=== PATIENT | male | born 1940 | race Caucasian/White ===

== ENCOUNTER 2021-07-15 12:19 | Inpatient (IN) | payer MEDICAID, MEDICARE ==
[~2021-07-15] VITALS: Ht 182.9 cm; Wt 74.4 kg
--- NOTE | 2021-07-15 12:31 | NUR ---
TO ER BED 2. [facility] FROM [facility]IV[facility] C/O WEAKNESS SINCE THIS MORNING. PT CHANGED INTO GOWN. NOT IN RESPIRATORY DISTRESS. CONNECTED TO MONITOR. AWAITING DOCTORS ORDERS.
--- NOTE | 2021-07-15 12:45 | NUR ---
IV LINE ESTABLISHED . R FORARM 20G.
--- NOTE | 2021-07-15 12:49 | NUR ---
PT TAKEN TO CT SCAN
--- NOTE | 2021-07-15 13:06 | NUR ---
PT RETURNED FROM CT SCAN. RECONNECTED TO MONITOR.
--- NOTE | 2021-07-15 13:19 | NUR ---
LAB AT BEDSIDE
[2021-07-15 13:49] LABS: ALANINE AMINOTRANSFERASE 21 U/L (12-78); ALBUMIN 3.3 g/dL (3.4-5.0); ALKALINE PHOSPHATASE 95 U/L (46-116); ASPARTATE AMINOTRANSFERASE 9 U/L (15-37); BILIRUBIN,DIRECT 0.2 mg/dL (0.0-0.2); CALCIUM, SERUM 10.5 mg/dL (8.5-10.1); CARBON DIOXIDE 29 mmol/L (21-32); CHLORIDE 106 mmol/L (98-107); GLUCOSE 113 mg/dL (74-106); SODIUM SERUM 142 mmol/L (136-145); TOTAL PROTEIN, SERUM 6.4 g/dL (6.4-8.2); UREA NITROGEN, BLOOD 21 mg/dL (7-18)
[2021-07-15 14:06] LABS: BASOPHILS % (AUTO) 0.5 % (0.0-2.0); HEMATOCRIT 41 % (39-51); HEMOGLOBIN 13.3 g/dL (13.5-17.5); LYMPHOCYTES # (AUTO) 0.7 K/uL (0.8-4.8); LYMPHOCYTES % (AUTO) 9.9 % (20.0-44.0); MEAN CORPUSCULAR HGB CONC 33 g/dl (31.0-36.0); MEAN CORPUSCULAR VOLUME 95 fL (80-96); MONOCYTES # (AUTO) 0.6 K/uL (0.1-1.30); MONOCYTES % (AUTO) 8.3 % (2.0-12.0); NEUTROPHILS # (AUTO) 5.5 K/uL (1.8-8.9); NEUTROPHILS % (AUTO) 76.3 % (43.0-81.0); PLATELET COUNT (AUTO) 257 K/uL (150-450); RED BLOOD CELL COUNT(AUTO) 4.29 MIL/uL (4.5-6.0); WHITE BLOOD COUNT (AUTO) 7.2 K/uL (4.3-11.0)
--- NOTE | 2021-07-15 14:19 | NUR ---
PT UNABLE TO URINATE AT THIS TIME
[2021-07-15] MEDS ORDERED: ZOLPIDEM TARTRATE 5 MG TABLET PO PRN (14:30)
[2021-07-15] MEDS ORDERED: IV NS 0.9% 1,000 ML BAG IV ONE (14:30)
[2021-07-15] MEDS ORDERED: Z GUARD REMEDY 4 OZ OINT TP PRN (14:30)
[2021-07-15] MEDS ORDERED: ONDANSETRON HCL/PF 4 MG/2 ML VIAL IVP PRN (14:30)
[2021-07-15] MEDS ORDERED: MAGNESIUM HYDROXIDE 30 ML UDC PO PRN (14:30)
[2021-07-15] MEDS ORDERED: ACETAMINOPHEN 325 MG TABLET PO PRN (14:30)
[2021-07-15] MEDS ORDERED: MAG HYDROX/AL HYDROX/SIMETH 30 ML UDC PO PRN (14:30)
--- NOTE | 2021-07-15 15:10 | NUR ---
COVID ANTIGEN COLLECTED AND SENT TO LAB
--- NOTE | 2021-07-15 15:43 | NUR ---
PT UNABLE TO URINATE AT THIS TIME
--- NOTE | 2021-07-15 19:41 | NUR ---
URINE COLLECTED AND SENT TO LAB
[2021-07-15 20:18] LABS: BILIRUBIN,URINE NEGATIVE (NEGATIVE); COLOR,URINE YELLOW (YELLOW); LEUKOCYTE ESTERASE ,URINE NEGATIVE (NEGATIVE); NITRITE, URINE NEGATIVE (NEGATIVE); PH,URINE 5.5 (5.0-8.0); PROTEIN,URINE NEGATIVE (NEGATIVE); UGLUCOSE NEGATIVE (NEGATIVE); UROBILINOGEN,URINE 0.2 EU/dL (0.2)
[2021-07-15 20:31] LABS: BACTERIA,URINE None seen /HPF (None Seen); RBC,URINE 0-2 /HPF (0-2); SQUAMOUS EPITHELIAL CELL,UR 0-2 /HPF (None Seen); WBC,URINE 0-2 /HPF (0-3)
[2021-07-15 20:32] LABS: MUCUS,URINE Few /LPF (None Seen)
--- NOTE | 2021-07-15 21:27 | NUR ---
BED ASSIGNMENT: 308-2
--- NOTE | 2021-07-15 23:25 | NUR ---
REPORT GIVEN TO LEIDY REEVES
--- NOTE | 2021-07-15 23:26 | NUR ---
RN notes received report from LEIDY Max Er nurse.
--- NOTE | 2021-07-15 23:41 | NUR ---
PT TRANSPORTED TO ROOM 308-2 WITHOUT INCIDENT.
--- NOTE | 2021-07-15 23:42 | NUR ---
bulb filler notes Received Pt from ER nurse. Pt arrived at the unit with ACLS protocol. Pt is alert and orientedX1-2 with episode of confusion. On room air. No SOB. No S/s of distress noted. IV site at R forearm # 20 is clean, intact, flushes well. Tele monitor showed SR with BBB. Reorient Pt to the room and the use of call light. Pt verbalized understanding. Skin assessment is intact and performed. Pt skin is intact. Received admission ordered for MD. Pt's belonging is checked and signed By Pt and placed at Pt's chart. Safety precautions is maintained. bed at low position, brakes locked, bed alarm is on, side rails upX3, hob elevated and call light is within reach. Will continue to monitor.
[2021-07-16] VITALS: BP 152/72
[2021-07-16] MEDS: IV NS 0.9% 1,000 ML IV PRN ×2 (00:47→22:27)
[2021-07-16 04:30] VITALS: BP_SYST 180; BP_SYST 182; BP_DIAS 58; BP_DIAS 75
--- NOTE | 2021-07-16 04:50 | NUR ---
RN notes orthostatic BP. sitting : BP 180/58 HR 55. supine: 182/75 HR 60. Pt unable to stand. Will continue to monitor
--- NOTE | 2021-07-16 05:00 | NUR ---
RN notes Pt's BP 182/75 and HR 60. Informed and notified MD. MD ordered Clonidine 0.2 patch/one time. Order carried out. charge nurse is aware and informed.
[2021-07-16] MEDS ORDERED: CLONIDINE HCL 0.2MG/24H PTWK 1 EA PATCH TD ONE (05:30)
--- NOTE | 2021-07-16 05:38 | NUR ---
RN notes Informed and notified MD that clonidine 0.2 mg patch is not available at this time. MD ordered clonidine 0.2mg/po/Q 4HR/prn sbp>160. Order carried out. Charge nurse is aware and informed.
[2021-07-16] MEDS: CLONIDINE HCL 0.1 MG TABLET PO PRN (05:55)
--- NOTE | 2021-07-16 05:55 | NUR ---
RN notes pt's BP 182/75 HR 60. Administered clonidine 0.2 mg/po/prn as ordered for high BP. will continue to monitor
--- NOTE | 2021-07-16 06:40 | NUR ---
RN closing notes. Pt is resting in bed comfortably. On room air. NO SOB. No S/s of distress noted. IV site at R forearm # 20 is clean, intact and infusing well NS@ 75 ml/hr. Routine meds were given as ordered. Kept Pt clean, dry and comfortable. All needs met and attended. safety precautions is maintained. Will endorse to am nurse for RINA.
[2021-07-16 07:49] LABS: BASOPHILS % (AUTO) 0.4 % (0.0-2.0); EOSINOPHILS % (AUTO) 5.4 % (0.0-6.0); HEMATOCRIT 36 % (39-51); HEMOGLOBIN 11.8 g/dL (13.5-17.5); LYMPHOCYTES % (AUTO) 7.8 % (20.0-44.0); MEAN CORPUSCULAR HGB CONC 33 g/dl (31.0-36.0); MEAN CORPUSCULAR VOLUME 95 fL (80-96); MONOCYTES # (AUTO) 1.1 K/uL (0.1-1.30); MONOCYTES % (AUTO) 9.1 % (2.0-12.0); NEUTROPHILS # (AUTO) 9.6 K/uL (1.8-8.9); NEUTROPHILS % (AUTO) 77.3 % (43.0-81.0); PLATELET COUNT (AUTO) 226 K/uL (150-450); RED BLOOD CELL COUNT(AUTO) 3.78 MIL/uL (4.5-6.0); WHITE BLOOD COUNT (AUTO) 12.4 K/uL (4.3-11.0)
[2021-07-16 08:00] VITALS: BP 128/75
[2021-07-16] MEDS: ENOXAPARIN SODIUM 40 MG/0.4 ML DISP.SYRIN SQ SCH (08:25)
[2021-07-16] MEDS: VALSARTAN 80 MG TABLET PO SCH (08:27)
--- NOTE | 2021-07-16 09:00 | NUR ---
RN NOTES PATIENT SEEN BY DR. PEMBERTON FOR CARDIO CONSULT.
[2021-07-16 09:27] LABS: CALCIUM, SERUM 8.4 mg/dL (8.5-10.1); CREATININE 0.9 mg/dL (0.6-1.3); MAGNESIUM 2.2 mg/dL (1.8-2.4); PHOSPHORUS 3.7 mg/dL (2.5-4.9)
[2021-07-16] MEDS ORDERED: MAGNESIUM HYDROXIDE 30 ML UDC PO PRN (11:30)
--- NOTE | 2021-07-16 13:00 | NUR ---
RN NOTES PATIENT SEEN BY PT FOR EVAL TODAY.
[2021-07-16 16:00] VITALS: BP 169/73
[2021-07-16 16:53] LABS: CHOLESTEROL 114 mg/dL (<200); HDL CHOLESTEROL 45 mg/dL (40-60); LDL 63 mg/dL (0-99); THYROID STIMULATING HORMONE 1.512 uIU/mL (0.358-3.74); TRIGLYCERIDES 36 mg/dL (30-150)
--- NOTE | 2021-07-16 19:30 | NUR ---
RN OPENING NOTE PATIENT IN BED, SLEEPING. EASILY AWAKENED. PATIENT IS A/O X 1-2, ABLE TO ANSWER BASIC QUESTIONS. PATIENT IS CURRENTLY ON RA, TOLERATING WELL WITH NO SOB PRESENT. PATIENT'S TELE MONITOR READS SB 58 BPM. PATIENT HAS A RFA 20G WITH NS @ 75ML/HR RUNNING AND INFUSING WELL. NO COMPLAINS OF PAIN AT THIS TIME. SAFETY MEASURES IN PLACE: BED LOCKED AND IN LOWEST POSITION, CALL LIGHT WITHIN REACH, SIDE RAILS UP. WILL MONITOR PATIENT CLOSELY.
--- NOTE | 2021-07-16 20:00 | NUR ---
RN NOTE LAB NOTIFIED RN FOR TROPONIN LEVEL OF 0.933, MD AWARE LAB VALUE IS TRENDING DOWN.
[2021-07-16 20:27] VITALS: BP 160/68
[2021-07-17 00:19] VITALS: BP 155/68
[2021-07-17 04:29] VITALS: BP 157/62
[2021-07-17 06:58] LABS: BASOPHILS # (AUTO) 0.1 K/uL (0.0-0.2); BASOPHILS % (AUTO) 0.9 % (0.0-2.0); EOSINOPHILS % (AUTO) 10.1 % (0.0-6.0); HEMATOCRIT 36 % (39-51); HEMOGLOBIN 12.2 g/dL (13.5-17.5); LYMPHOCYTES # (AUTO) 1.1 K/uL (0.8-4.8); LYMPHOCYTES % (AUTO) 17.3 % (20.0-44.0); MEAN CORPUSCULAR HGB CONC 34 g/dl (31.0-36.0); MEAN CORPUSCULAR VOLUME 94 fL (80-96); MONOCYTES # (AUTO) 0.6 K/uL (0.1-1.30); MONOCYTES % (AUTO) 9.7 % (2.0-12.0); NEUTROPHILS # (AUTO) 3.9 K/uL (1.8-8.9); PLATELET COUNT (AUTO) 236 K/uL (150-450); RED BLOOD CELL COUNT(AUTO) 3.88 MIL/uL (4.5-6.0); WHITE BLOOD COUNT (AUTO) 6.3 K/uL (4.3-11.0)
[2021-07-17 07:04] LABS: ALANINE AMINOTRANSFERASE 18 U/L (12-78); ALBUMIN 2.8 g/dL (3.4-5.0); ALKALINE PHOSPHATASE 86 U/L (46-116); ASPARTATE AMINOTRANSFERASE 10 U/L (15-37); BILIRUBIN,TOTAL 0.9 mg/dL (0.2-1.0); CALCIUM, SERUM 8.3 mg/dL (8.5-10.1); CARBON DIOXIDE 27 mmol/L (21-32); CHLORIDE 111 mmol/L (98-107); GLUCOSE 88 mg/dL (74-106); MAGNESIUM 2.2 mg/dL (1.8-2.4); PHOSPHORUS 3.8 mg/dL (2.5-4.9); POTASSIUM 4.2 mmol/L (3.5-5.1); SODIUM SERUM 142 mmol/L (136-145); TOTAL PROTEIN, SERUM 5.7 g/dL (6.4-8.2); UREA NITROGEN, BLOOD 19 mg/dL (7-18)
[2021-07-17] MEDS ORDERED: RISP1TAB97 PO (07:11)
[2021-07-17] MEDS ORDERED: VALS160T29 PO (07:11)
[2021-07-17] MEDS ORDERED: ASPI-1420 PO (07:11)
[2021-07-17] MEDS ORDERED: TAMS-12 PO (07:11)
[2021-07-17] MEDS ORDERED: DOCU100C58 PO (07:11)
[2021-07-17] MEDS ORDERED: DULO20CA19 PO (07:11)
[2021-07-17] MEDS ORDERED: ATOR10TA PO (07:11)
--- NOTE | 2021-07-17 07:16 | NUR ---
RN CLOSING NOTE PATIENT IN BED, SLEEPING. EASILY AWAKENED. PATIENT IS A/O X 1-2, ABLE TO ANSWER BASIC QUESTIONS. PATIENT IS CURRENTLY ON RA, TOLERATING WELL WITH NO SOB PRESENT. PATIENT'S TELE MONITOR READS SB 56 BPM. PATIENT HAS A RFA 20G WITH NS @ 75ML/HR RUNNING AND INFUSING WELL. NO COMPLAINS OF PAIN AT THIS TIME. SAFETY MEASURES IN PLACE: BED LOCKED AND IN LOWEST POSITION, CALL LIGHT WITHIN REACH, SIDE RAILS UP. ALL NEEDS MET AND ATTENDED. ALL ORDERS CARRIED OUT. WILL ENDORSE TO DAY SHIFT NURSE FOR RINA.
[2021-07-17 08:00] VITALS: BP 118/79
[2021-07-17] MEDS: VALSARTAN 80 MG TABLET PO SCH (08:19)
[2021-07-17] MEDS: AMLODIPINE BESYLATE 5 MG TABLET PO SCH (08:20)
[2021-07-17] MEDS: ENOXAPARIN SODIUM 40 MG/0.4 ML DISP.SYRIN SQ SCH (08:22)
--- NOTE | 2021-07-17 09:45 | NUR ---
RN NOTES PATIENT SEEN BY DR. LANG TODAY; MADE AWARE OF PLAN OF CARE.
[2021-07-17 16:00] VITALS: BP 153/99
--- NOTE | 2021-07-17 18:18 | NUR ---
RN NOTES PATIENT PROVIDED W/ WARM BLANKETS. NO COMPLAINT OF PAIN NOR DISCOMFORT. ABLE TO EAT LUNCH AND DINNER W/O NAUSEA. IVF CONTINUOUS. ABLE TO REPOSITION SELF IN BED W/ MIN ASSIST. SAFETY MEASURES MAINTAINED. CALL LIGHT PLACED W/IN REACH OF PATIENT. DUE MEDS GIVEN TODAY.
--- NOTE | 2021-07-17 19:30 | NUR ---
RN OPENING NOTE PATIENT IN BED, AWAKE. PATIENT IS A/O X 1-2, ABLE TO ANSWER BASIC QUESTIONS. PATIENT IS CURRENTLY ON RA, TOLERATING WELL WITH NO SOB PRESENT. PATIENT'S TELE MONITOR READS SB 45 BPM. PATIENT HAS A RFA 20G WITH NS @ 75ML/HR RUNNING AND INFUSING WELL. NO COMPLAINS OF PAIN AT THIS TIME. SAFETY MEASURES IN PLACE: BED LOCKED AND IN LOWEST POSITION, CALL LIGHT WITHIN REACH, SIDE RAILS UP. WILL MONITOR PATIENT CLOSELY.
[2021-07-17 20:00] VITALS: BP 158/75
[2021-07-18 04:00] VITALS: BP 155/70
[2021-07-18] MEDS: IV NS 0.9% 1,000 ML IV PRN (06:31)
--- NOTE | 2021-07-18 06:45 | NUR ---
RN CLOSING NOTE PATIENT IN BED, SLEEPING. EASILY AWAKENED. PATIENT IS A/O X 2, ABLE TO ANSWER BASIC QUESTIONS. PATIENT IS CURRENTLY ON RA, TOLERATING WELL WITH NO SOB PRESENT. NOT IN ANY RESPIRATORY DISTRESS. PATIENT'S TELE MONITOR READS SB 55 BPM. PATIENT HAS A RFA 20G WITH NS @ 75ML/HR RUNNING AND INFUSING WELL. NO COMPLAINS OF PAIN AT THIS TIME. SAFETY MEASURES IN PLACE: BED LOCKED AND IN LOWEST POSITION, CALL LIGHT WITHIN REACH, SIDE RAILS UP. ALL NEEDS MET AND ATTENDED. ALL ORDERS CARRIED OUT. WILL ENDORSE TO DAY SHIFT NURSE FOR RINA.
[2021-07-18 07:19] LABS: BASOPHILS # (AUTO) 0.1 K/uL (0.0-0.2); BASOPHILS % (AUTO) 0.8 % (0.0-2.0); EOSINOPHILS % (AUTO) 8.7 % (0.0-6.0); HEMATOCRIT 37 % (39-51); HEMOGLOBIN 12.4 g/dL (13.5-17.5); LYMPHOCYTES # (AUTO) 1.1 K/uL (0.8-4.8); LYMPHOCYTES % (AUTO) 14.3 % (20.0-44.0); MEAN CORPUSCULAR HGB CONC 34 g/dl (31.0-36.0); MEAN CORPUSCULAR VOLUME 93 fL (80-96); MONOCYTES # (AUTO) 0.8 K/uL (0.1-1.30); MONOCYTES % (AUTO) 10.3 % (2.0-12.0); NEUTROPHILS # (AUTO) 4.9 K/uL (1.8-8.9); NEUTROPHILS % (AUTO) 65.9 % (43.0-81.0); PLATELET COUNT (AUTO) 252 K/uL (150-450); RED BLOOD CELL COUNT(AUTO) 3.94 MIL/uL (4.5-6.0); WHITE BLOOD COUNT (AUTO) 7.4 K/uL (4.3-11.0)
[2021-07-18 07:20] LABS: ALBUMIN 2.9 g/dL (3.4-5.0); CALCIUM, SERUM 8.2 mg/dL (8.5-10.1); CREATININE 0.9 mg/dL (0.6-1.3); MAGNESIUM 2.2 mg/dL (1.8-2.4); PHOSPHORUS 4.2 mg/dL (2.5-4.9); POTASSIUM 3.8 mmol/L (3.5-5.1); TOTAL PROTEIN, SERUM 5.8 g/dL (6.4-8.2)
--- NOTE | 2021-07-18 07:30 | NUR ---
ms rn received on bed, sleeping,oriented x1-2,not in any form of distress, respirations even and unlabored,no sob noted,lung are diminished,abdomen soft,positive bowel sounds,denies pain at this time,all needs attended.
[2021-07-18 08:00] VITALS: BP 148/65
[2021-07-18 08:17] VITALS: BP 148/65
--- NOTE | 2021-07-18 09:05 | NUR ---
ms rn due meds given,tolerated well.
[2021-07-18] MEDS: AMLODIPINE BESYLATE 5 MG TABLET PO SCH (09:14)
[2021-07-18] MEDS: VALSARTAN 80 MG TABLET PO SCH (09:14)
[2021-07-18] MEDS: ENOXAPARIN SODIUM 40 MG/0.4 ML DISP.SYRIN SQ SCH (09:15)
[2021-07-18 12:00] VITALS: BP 168/84
[2021-07-18] MEDS: CLONIDINE HCL 0.1 MG TABLET PO PRN (15:14)
--- NOTE | 2021-07-18 15:15 | NUR ---
ms hutson clonidine 0.2 mg given for high b/p . will recheck b/p later.
[2021-07-18 16:00] VITALS: BP 188/74
--- NOTE | 2021-07-18 17:00 | NUR ---
ms rn new if inserted at left wrist g 22 w/ good venous return.
--- NOTE | 2021-07-18 18:34 | NUR ---
ms rn on bed, no distress noted,all needs attended.
--- NOTE | 2021-07-18 19:00 | NUR ---
MANAGER BANQUET OPENING NOTE RECEIVED PT AWAKE IN BED. A/O 1-2. PT STABLE ON ROOM AIR. NO SOB NOTED. NO S/S OF RESPIRATORY DISTRESS. PT IS ON EXTERNAL AREA SALES MANAGER READING. NO C/O PAIN AT THIS TIME. IV ACCESS IN RIGHT LEFT WRIST# 22. IV IS INTACT, PATENT, AND FLUSHING WELL. SAFETY MEASURES MAINTAINED AT ALL TIMES. BED IN LOWEST, LOCKED POSITION. HOB ELEVATED, SIDE RAILS UP X2. CALL LIGHT AND TABLE WITHIN REACH. WILL CONTINUE WITH PLAN OF CARE
[2021-07-18 20:00] VITALS: BP 139/64
[2021-07-19] VITALS: BP 118/53
[2021-07-19 04:00] VITALS: BP 160/60
--- NOTE | 2021-07-19 06:30 | NUR ---
STAINED GLASS INSTALLER CLOSING NOTE PT IS RESTING IN BED AND EASILY AROUSED. STABLE ON ROOM AIR, NO SOB OR RESPIRATORY DISTRESS NOTED. 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 IV ACCESS IN LEFT WRIST # 22. ALL NEEDS HAVE BEEN MET. INCONTINENCE CARE PROVIDED. PAIN MANAGEMENT ADMINISTERED PER ORDER. SAFETY, SEIZURE, AND ASPIRATION PRECAUTIONS MAINTAINED AT ALL TIMES. BED IN LOWEST, LOCKED POSITION WITH BED ALARM ON, SIDE RAILS UP X2. HOB ELEVATED, CALL LIGHT WITHIN REACH. SAFETY MEASURES FOLLOWED. WILL ENDORSE TO ONCOMING NURSE FOR RINA.
--- NOTE | 2021-07-19 06:30 | NUR ---
STORE PROMOTER CLOSING NOTE PT IS RESTING IN BED AN DEASILY AROUSED. STABL BONNIE ROOM AIR, NO SOB OR RESPIRATORY DISTRESS NOTED. ALL NEEDS HAVE BEEN MET. PAIN MANAGEMENT ADMINISTERED PER ORDER. SAFETY, SEIZURE, AND ASPIRATION PRECAUTIONS MAINTAINED AT ALL TIMES. BED IN LOWEST, LOCKED POSITION WITH BED ALARM ON, SIDE RAILS UP X2. HOB ELEVATED, CALL LIGHT WITHIN REACH. SAFETY MEASURES FOLLOWED. WILL ENDORSE TO ONCOMING NURSE FOR RINA.
--- NOTE | 2021-07-19 07:55 | NUR ---
ms rn received on bed, awake,alert,oriented x 2,not in any form of distress, respirations even and unlabored no sob noted, sinus rony on monitor, patient asymptomatic, denies pain at this time, will monitor patient.
[2021-07-19 08:00] VITALS: BP 131/59
--- NOTE | 2021-07-19 08:20 | NUR ---
ms hutson breakfast served,due meds given,tolerated well.
[2021-07-19] MEDS: VALSARTAN 80 MG TABLET PO SCH (08:40)
[2021-07-19] MEDS: AMLODIPINE BESYLATE 5 MG TABLET PO SCH (08:40)
[2021-07-19] MEDS: ENOXAPARIN SODIUM 40 MG/0.4 ML DISP.SYRIN SQ SCH (08:55)
--- NOTE | 2021-07-19 13:55 | NUR ---
ms rn patient converted from rony to aflutter, on and off, stat ekg done.
--- NOTE | 2021-07-19 14:50 | NUR ---
ms rn doene w/ ekg result, dr. fitzgerald made aware, w/ order to d/c discharge and monitor patient.
--- NOTE | 2021-07-19 15:53 | NUR ---
ms rn on bed,no distress noted.all needs attended.
--- NOTE | 2021-07-19 19:14 | NUR ---
CERTIFIED MAINTENANCE WELDER NOTES received on bed, awake,alert,oriented x 2,not in any form of distress, respirations even and unlabored no sob noted,sinus rony on monitor, patient asymptomatic, denies pain at this time, will monitor patient.
[2021-07-19 20:00] VITALS: BP 153/55
[2021-07-20] VITALS: BP 155/59
[2021-07-20 04:00] VITALS: BP 140/69
--- NOTE | 2021-07-20 06:48 | NUR ---
DIGITAL MARKETING ASSISTANT NOTES pt in bed, awake,alert,oriented x 2,not in any form of distress, respirations even and unlabored no sob noted,sinus rony on monitor, patient asymptomatic, denies pain at this time, will endorse crae to day shift nurse.
--- NOTE | 2021-07-20 07:29 | NUR ---
CARE DIRECTOR RN OPENING NOTES Pt IS ASLEEP IN BED, EASILY AROUSABLE. Pt IS A/Ox1-2. Pt IS ON ROOM AIR AND TOLERATING WELL AT THIS TIME. NO COMPLAINTS OF PAIN OR SIGNS OF DISTRESS NOTICED. SAFETY MEASURES ARE IN PLACE:BED IS LOCKED AND IN LOWEST POSITION, SIDE RAILS UP x2, CALL LIGHT AND BED SIDE TABLE ARE WITHIN REACH. WILL CONTINUE TO MONITOR THROUGHOUT THE SHIFT.
[2021-07-20 08:00] VITALS: BP 150/71
[2021-07-20] MEDS: VALSARTAN 80 MG TABLET PO SCH (08:19)
[2021-07-20] MEDS: AMLODIPINE BESYLATE 5 MG TABLET PO SCH (08:19)
[2021-07-20] MEDS: ENOXAPARIN SODIUM 40 MG/0.4 ML DISP.SYRIN SQ SCH (08:28)
[2021-07-20 12:00] VITALS: BP 138/61
[2021-07-20 16:00] VITALS: BP 153/63
--- NOTE | 2021-07-20 18:35 | NUR ---
WAITER/WAITRESS HEAD CLOSING NOTES Pt IS AWAKE IN BED. A/Ox1-2. Pt IS ON ROOM AIR AND TOLERATING WELL AT THIS TIME. NO COMPLAINTS OF PAIN AND NO SIGNS OF DISTRESS NOTICED. IV ACCESS ON L WRIST AND R FA SL ARE PATENT AND INTACT. SAFETY MEASURE ARE IN PLACE: BED IS LOCKED AND IN LOWEST POSITION. SIDE RAILS UPx3. CALL LIGHT QAND BED SIDE TABLE ARE WITHIN REACH. WILL ENDORSE TO ONCOMING SHIFT.
--- NOTE | 2021-07-20 19:35 | NUR ---
RN NOTES RECEIVED PATIENT AWAKE ON BED, A/OX2, SB WITH BBB ON TELE MONITOR HR-54DENIES PAIN, NO SOB, CALL LIGHT WITHIN REACH, SIDERAILSUPX2, WILL CONTINUE TO MONITOR
[2021-07-20 20:00] VITALS: BP_SYST 157; BP_SYST 160; BP_SYST 169; BP_DIAS 66; BP_DIAS 92
[2021-07-21] VITALS (10 sets, daily range): BP systolic 97–164; BP diastolic 36–74
--- NOTE | 2021-07-21 06:46 | NUR ---
RN NOTES AWAKE, MORNING CARE RENDERED, DENIES PAIN,NO SOB, MORNING CARE RENDERED , PT. NEEDS ATTENDED
--- NOTE | 2021-07-21 07:15 | NUR ---
AMMONIUM HYDROXIDE OPERATOR OPENING NOTES RECEIVED PATIENT RESTING IN BED. A/O X1-2. ON ROOM AIR TOLERATING WELL, SPO2 @95%, NO SOB NOTED. BREATHING EVEN AND UNLABORED. WITH IV ACCESS ON LEFT WRIST INTACT. ON TELE MONITOR SHOWING SINUS JOSE ANTONIO @54. NO S/SX OF PAIN NOTED. SAFETY MEASURES MAINTAINED. WILL CONTINUE TO MONITOR. Addendum: 07/21/21 at 1557 by USAMA ATKINS RN *PATIENT IS ALERT AND ORIENTED X4.
--- NOTE | 2021-07-21 07:40 | NUR ---
RN NOTES RECEIVED A CALL FROM DR. MADISON WITH ORDER FOR PACEMAKER PLACEMENT THIS AFTERNOON. NPO PRIOR PROCEDURE. ORDERS CARRIED OUT.
[2021-07-21] MEDS: ENOXAPARIN SODIUM 40 MG/0.4 ML DISP.SYRIN SQ SCH (08:30)
[2021-07-21] MEDS: VALSARTAN 80 MG TABLET PO SCH (08:51)
[2021-07-21] MEDS: AMLODIPINE BESYLATE 5 MG TABLET PO SCH (08:51)
--- NOTE | 2021-07-21 14:40 | NUR ---
RN NOTES PATIENT IS ALERT AND ORIENTED X4, OBTAINED CONSENT FOR PACEMAKER PLACEMENT. PATIENT SIGNED CONSENT FOR PACEMAKER PLACEMENT.
[2021-07-21] MEDS ORDERED: MIDAZOLAM HCL 2 MG/2ML VIAL ONE (15:41)
[2021-07-21] MEDS ORDERED: FENTANYL PF 100MCG/2ML AMPUL ONE (15:41)
[2021-07-21] MEDS ORDERED: KETAMINE HCL (500MG/10ML) 50 MG/ML VIAL ONE (15:41)
[2021-07-21] MEDS ORDERED: IOHEXOL 240MG/ML 50 ML IV ONE (15:42)
[2021-07-21] MEDS ORDERED: LIDOCAINE 1% INJ 50 ML MDV IJ ONE ×2 (15:43→17:10)
[2021-07-21] MEDS ORDERED: ANESTHESIA TRAY IN PYXIS 1 EA TRAY MC ONE ×2 (15:43→18:16)
--- NOTE | 2021-07-21 16:00 | NUR ---
RN NOTES PATIENT PICKED UP BY OR NURSE LEIDY CHAMPION AND LEIDY RAMIREZ FOR PACEMAKER PLACEMENT. PATIENT IN STABLE CONDITION.
--- NOTE | 2021-07-21 18:37 | NUR ---
RN NOTES PATIENT BACK FROM SURGERY, S/P PACEMAKER PLACEMENT ON RIGHT UPPER CHEST, WITH DRESSING INTACT. PACING @60. PT IN STABLE CONDITION. VITAL SIGNS FOLLOWS: 97.6, 60, 19, 101/36, SPO2 100 % ON O2 @2LPM. WILL CONTINUE TO MONITOR.
--- NOTE | 2021-07-21 19:00 | NUR ---
HONEY PRODUCER CLOSING NOTES PATIENT IN BED, AWAKE, NO SIGNS OF ACUTE DISTRESS NOTED. S/P PACEMAKER PLACEMENT. NO SOB NOTED , CURRENTLY ON O2 @ 2LPM VIA N/C SATTING @ 97 %. BREATHING EVEN AND UNLABORED. SAFETY MEASURES MAINTAINED, BED IN LOWEST LOCKED POSITION, SR UP X2, CALL LIGHT PLACED WITHIN EASY REACH. WILL ENDORSE TO NEXT SHIFT.
--- NOTE | 2021-07-21 19:35 | NUR ---
RN NOTES RECEIVED PATIENT SLEEPING BUT AROUSABLE,S/P PACEMAKER PLACEMENT ON THE LEFT CHEST WALL. DRESSING INTACT, V-PACING ON TELEMONITOR HR-62, DENIES PAIN, NO SOB, CALL LIGHT WITHIN REACH, SIDERAILSUPX2, WILL CONTINUE TO MONITOR
[2021-07-21] MEDS: CEFAZOLIN 2 GM in IV D5W 100 ML IV SCH (23:24)
[2021-07-22] VITALS: BP 134/70
[2021-07-22] MEDS: IV NS 0.9% 1,000 ML IV PRN (03:16)
--- NOTE | 2021-07-22 03:45 | NUR ---
RN NOTES RECEIVED PATIENT SLEEPING BUT AROUSABLE,S/P PACEMAKER PLACEMENT ON THE LEFT CHEST WALL. DRESSING INTACT, V-PACING ON TELEMONITOR HR-62, DENIES PAIN, NO SOB, CALL LIGHT WITHIN REACH, SIDERAILSUPX2, WILL CONTINUE TO MONITOR Addendum: 07/22/21 at 0635 by JASEN AGUILAR RN RIGHT TIME AND [id number]
[2021-07-22 04:00] VITALS: BP 146/80
[2021-07-22] MEDS: CEFAZOLIN 2 GM in IV D5W 100 ML IV SCH (05:02)
--- NOTE | 2021-07-22 06:35 | NUR ---
RN NOTES AWAKE, MORNING CARE RENDERED, DENIES PAIN, NO SOB, SIDERAILSUPX2, PT. NEEDS ATTENDED
--- NOTE | 2021-07-22 07:30 | NUR ---
OIL WELL DRILLER OPENING NOTES RECEIVED PATIENT IN BED AWAKE, NO SIGNS OF ACUTE DISTRESS NOTED. ON ROOM AIR, TOLERATING WELL, NO SOB NOTED. ON TELE MONITOR, V-PACING/AV PACING.IV ACCESS ON RFA #20G INTACT WITH NS @ 75 ML/HR RUNNING. ALSO NOTED WITH LWRIST #22G, INTACT AND PATENT. DENIES ANY PAIN OR DISCOMFORT AT THIS TIME. SAFETY MEASURE IN PLACE. WILL CONTINUE TO MONITOR.
[2021-07-22] MEDS: AMLODIPINE BESYLATE 5 MG TABLET PO SCH (08:30)
[2021-07-22] MEDS: VALSARTAN 80 MG TABLET PO SCH (08:31)
[2021-07-22] MEDS: ENOXAPARIN SODIUM 40 MG/0.4 ML DISP.SYRIN SQ SCH (08:31)
[2021-07-22 08:47] VITALS: BP 139/56
[2021-07-22] MEDS ORDERED: SOTALOL HCL 80 MG TABLET PO SCH (10:30)
[2021-07-22 13:18] VITALS: BP 163/76
[2021-07-22 16:30] VITALS: BP 140/53
--- NOTE | 2021-07-22 17:00 | NUR ---
INVESTMENT ACCOUNTANT NOTES PATIENT DISCHARGED TO [facility] IN STABLE CONDITION. VITAL SIGNS TAKEN, STABLE AND RECORDED. ALL BELONGINGS ACCOUNTED FOR, FORMS SIGNED BY PATIENT. DISCHARGE INSTRUCTIONS PROVIDED TO PATIENT WITH VERBALIZATION OF UNDERSTANDING. PATIENT REFUSED PHOTOS OF SKIN ISSUES TO BE TAKEN. IV ACCESS REMOVED, NO BLEEDING NOTED. REPORT GIVEN TO [facility] RN LISSETTE MORELOS. PATIENT LEFT UNIT @ 1655, PICKED UP BY [facility]. CN AWARE OF DISCHARGE.
== END 2021-07-22 17:00 | DRG 26 ==
LOC: ER 12:52 → TRANSITION 15:18 → TELE 21:43 → MED 22:27 → TELE 07-16 00:30
PROVIDERS: ADMIT Nurse Practitioner Acute Care; ATTEND Internal Medicine
PROC: 0JH606Z Insertion of Pacemaker, Dual Chamber into Chest Subcutaneous Tissue and Fascia, Open Approach (ICD-10-PCS; principal; 2021-07-15)
PROC: 02HK3JZ Insertion of Pacemaker Lead into Right Ventricle, Percutaneous Approach (ICD-10-PCS; 2021-07-15)
PROC: 02H63JZ Insertion of Pacemaker Lead into Right Atrium, Percutaneous Approach (ICD-10-PCS; 2021-07-15)
PROC: B5171ZZ Fluoroscopy of Left Subclavian Vein using Low Osmolar Contrast (ICD-10-PCS; 2021-07-15)
PROC: B5161ZZ Fluoroscopy of Right Subclavian Vein using Low Osmolar Contrast (ICD-10-PCS; 2021-07-15)
DX: G90.8 Other disorders of autonomic nervous system (principal); I49.5 Sick sinus syndrome; F29 Unspecified psychosis not due to a substance or known physiological condition; I48.92 Unspecified atrial flutter; E78.5 Hyperlipidemia, unspecified; E83.52 Hypercalcemia; I10 Essential (primary) hypertension; M19.90 Unspecified osteoarthritis, unspecified site; N40.0 Benign prostatic hyperplasia without lower urinary tract symptoms; Z20.822 Contact with and (suspected) exposure to COVID-19; Z79.899 Other long term (current) drug therapy; D64.9 Anemia, unspecified; R79.89 Other specified abnormal findings of blood chemistry
CPT/HCPCS: 36415; 70450-TC; 71045-TC; 80048-TC; 80053-TC; 80061-TC; 80076-TC; 81001; 82962-TC; 83605-TC; 83735-TC; 83880; 84100-TC; 84439-TC; 84443-TC; 84484-TC; 85025-TC; 85730-TC; 87040-TC; 87081-TC; 87086-TC; 93307-TC; 97112-TC; 97116-TC; 97530-TC; A6402; C1786; G0378; J0690; J1650; J2250; J3010; J3490; J7030; J7050; J7060; Q9966

== ENCOUNTER 2022-01-15 13:52 | Inpatient (IN) | payer MEDICARE, MEDICAID ==
[~2022-01-15] VITALS: Ht 182.9 cm; Wt 71.8 kg
[~2022-01-15 13:52] MED LIST: ASPI-1420 PO; ATOR10TA PO; DOCU100C58 PO; DULO20CA19 PO; RISP1TAB97 PO; TAMS-12 PO; VALS160T29 PO
--- NOTE | 2022-01-15 14:35 | NUR ---
[facility], PER REPORT + COVID. PLACED ON BED, ALERT AWAKE, RESPONDING TO VERNAL STIMULI WITH SLURRED SPEECH, ABLE TO FOLLOW COMMAND, BREATHING EVEN AND UNLABORED STURATING AT 97%RA.
[2022-01-15] MEDS ORDERED: ACET-868 PO (14:36)
[2022-01-15] MEDS ORDERED: ACET-2605 PO (14:36)
[2022-01-15] MEDS ORDERED: NA P133E RC (14:36)
[2022-01-15] MEDS ORDERED: BISA10SU11 RC (14:36)
[2022-01-15] MEDS ORDERED: LOSA100T31 PO (14:36)
[2022-01-15] MEDS ORDERED: RISP0.2515 PO (14:36)
[2022-01-15] MEDS ORDERED: ASPI-1169 PO (14:36)
[2022-01-15] MEDS ORDERED: IV LR 1000 ML 1,000 ML IV ONE (15:30)
--- NOTE | 2022-01-15 15:48 | NUR ---
SWAB FOR COVID19 SENT TO LAB
--- NOTE | 2022-01-15 16:00 | NUR ---
OUTBOARD MOTOR MECHANIC AT BED SIDE
--- NOTE | 2022-01-15 16:10 | NUR ---
X-RAY TECH AT BED SIDE
[2022-01-15 16:27] LABS: CALCIUM, SERUM 8.5 mg/dL (8.5-10.1); CARBON DIOXIDE 26 mmol/L (21-32); CHLORIDE 105 mmol/L (98-107); CREATININE 1.1 mg/dL (0.6-1.3); GLUCOSE 101 mg/dL (74-106); SODIUM SERUM 139 mmol/L (136-145); UREA NITROGEN, BLOOD 21 mg/dL (7-18)
[2022-01-15 16:33] LABS: ALANINE AMINOTRANSFERASE 120 U/L (12-78); ALBUMIN 2.8 g/dL (3.4-5.0); ALKALINE PHOSPHATASE 110 U/L (46-116); ASPARTATE AMINOTRANSFERASE 57 U/L (15-37); BILIRUBIN,TOTAL 1.3 mg/dL (0.2-1.0); MAGNESIUM 2.3 mg/dL (1.8-2.4); TOTAL PROTEIN, SERUM 6.8 g/dL (6.4-8.2)
[2022-01-15 16:49] LABS: BASOPHILS # (AUTO) 0.1 K/uL (0.0-0.2); BASOPHILS % (AUTO) 0.7 % (0.0-2.0); EOSINOPHILS % (AUTO) 1.5 % (0.0-6.0); HEMATOCRIT 44 % (39-51); HEMOGLOBIN 14.4 g/dL (13.5-17.5); LYMPHOCYTES # (AUTO) 1.4 K/uL (0.8-4.8); LYMPHOCYTES % (AUTO) 8.8 % (20.0-44.0); MEAN CORPUSCULAR HGB CONC 32 g/dl (31.0-36.0); MEAN CORPUSCULAR VOLUME 93 fL (80-96); MONOCYTES # (AUTO) 1.6 K/uL (0.1-1.30); MONOCYTES % (AUTO) 10.2 % (2.0-12.0); NEUTROPHILS # (AUTO) 12.7 K/uL (1.8-8.9); NEUTROPHILS % (AUTO) 78.8 % (43.0-81.0); PLATELET COUNT (AUTO) 409 K/uL (150-450); WHITE BLOOD COUNT (AUTO) 16.1 K/uL (4.3-11.0)
--- NOTE | 2022-01-15 17:31 | NUR ---
URINE SAMPLE SENT TO LAB
--- NOTE | 2022-01-15 17:43 | NUR ---
PRODUCE CLERK AT BED SIDE FOR BLOOD C/S
[2022-01-15 18:15] LABS: BILIRUBIN,URINE NEGATIVE (NEGATIVE); COLOR,URINE ORANGE (YELLOW); LEUKOCYTE ESTERASE ,URINE NEGATIVE (NEGATIVE); NITRITE, URINE NEGATIVE (NEGATIVE); PROTEIN,URINE NEGATIVE (NEGATIVE); UGLUCOSE NEGATIVE (NEGATIVE); UROBILINOGEN,URINE 0.2 EU/dL (0.2)
[2022-01-15 19:21] LABS: BACTERIA,URINE Few /HPF (None Seen); SQUAMOUS EPITHELIAL CELL,UR Few /HPF (None Seen); WBC,URINE 0-2 /HPF (0-3)
--- NOTE | 2022-01-15 20:15 | NUR ---
ANTONIO AND JOSEPH MEDRAON
--- NOTE | 2022-01-15 20:28 | NUR ---
PCR COVID SWAB COLLECTED AND SENT TO LAB
[2022-01-15] MEDS ORDERED: ENOXAPARIN SODIUM 30 MG/0.3 ML DISP.SYRIN SQ SCH (21:00)
[2022-01-15] MEDS ORDERED: ACETAMINOPHEN ES 500 MG TABLET PO PRN (21:00)
[2022-01-15] MEDS ORDERED: ZOLPIDEM TARTRATE 5 MG TABLET PO PRN (21:00)
[2022-01-15] MEDS ORDERED: ACETAMINOPHEN 325 MG TABLET PO PRN (21:00)
[2022-01-15] MEDS ORDERED: MAGNESIUM HYDROXIDE 30 ML UDC PO PRN (21:00)
[2022-01-15] MEDS ORDERED: ONDANSETRON HCL/PF 4 MG/2 ML VIAL IVP PRN (21:00)
[2022-01-15] MEDS ORDERED: Z GUARD REMEDY 4 OZ OINT TP PRN (21:00)
[2022-01-15] MEDS ORDERED: MAG HYDROX/AL HYDROX/SIMETH 30 ML UDC PO PRN (21:00)
[2022-01-15 21:09] LABS: BILIRUBIN,DIRECT 0.3 mg/dL (0.0-0.2)
[2022-01-15 22:35] VITALS: BP 115/62
--- NOTE | 2022-01-15 22:36 | NUR ---
REPORT GIVEN TO LEIDY ROB
--- NOTE | 2022-01-15 22:50 | NUR ---
PATIENT ADMITTED TO ROOM 108 AND ENDORSED TO DARRON FORBES FOR RINA
--- NOTE | 2022-01-15 22:55 | NUR ---
RN NOTE RECEIVED PT FROM ER VIA DIANE ACCOMPANIED BY 2 ER STAFF, PT AA0 X 3, IN NO ACUTE DISTRESS, BREATHING EVEN AND UNLABORED, SATURATION AT 98% ON ROOM AIR, SR ON THE MONITOR, HR IS 82. IV LINE AT RAC 20G INFILTRATED, REMOVED ASEPTICALLY. NOTED MULTIPLE ECCHYMOSIS AND MULTIPLE NEEDLE STICKS AT BUE, INSERTED ANOTHER IV LINE AT L HAND 24G, STARTED IV FLUID OF D51/2 NS AT 75 ML/HR. DUE MEDICATIONS ADMINISTERED. COMPREHENSIVE ASSESSMENT DONE, SKIN TEAR NOTED AT R HAND, AND OPEN WOUND NOTED AT COCCYX MEASURING APPROX 1.5 CM X 1 CM X 0.2 CM, CLEANSED WITH NS, COVERED WITH OPTIFOAM DRESSING, PHOTOS TAKEN AND PLACED IN CHART, REFERRED FOR WOUND CONSULT. PT NOTED TO BE INDEPENDENT WITH BED MOBILITY, WITH GENERALIZED WEAKNESS PRESENT. SAFETY MEASURES IN PLACE, BED IS LOCKED AND AT LOWEST POSITION, SIDE RAILS UP X 3, APPROPRIATE ISOLATION PRECAUTIONS IN PLACE. KEPT COMFORTABLE. WILL CONTINUE TO MONITOR AND CARRY OUT MD ORDERS.
[2022-01-15] MEDS ORDERED: CEFTRIAXONE 1 G VIAL ONE (23:43)
[2022-01-15] MEDS: ATORVASTATIN 10 MG TABLET PO SCH (23:47)
[2022-01-15] MEDS: TAMSULOSIN 0.4 MG CAP.SR.24H PO SCH (23:47)
[2022-01-15] MEDS: DOCUSATE SODIUM 100 MG CAPSULE PO SCH (23:47)
[2022-01-15] MEDS: IV D5/0.45 NACL 1,000 ML IV PRN (23:48)
[2022-01-15] MEDS: CEFTRIAXONE 1 G in IV D5W 50 ML IV SCH (23:48)
[2022-01-16] VITALS: BP 122/64
--- NOTE | 2022-01-16 07:53 | NUR ---
RN OPEN NOTE PATIENT IS IN BED SLEEPING A0 X 3, IN NO ACUTE DISTRESS, BREATHING EVEN AND UNLABORED, SATURATION AT 98% ON ROOM AIR, SR ON THE MONITOR,. IV LINE AT CHAN 22G RUNNING WITH D5 NS 75 ML/HR NOTED MULTIPLE ECCHYMOSIS AND MULTIPLE NEEDLE STICKS AT BUE, SKIN TEAR NOTED AT R HAND, AND OPEN WOUND NOTED AT COCCYX MEASURING APPROX 1.5 CM X 1 CM X 0.2 CM, PATIENT IS AMBULATORY WITH ASSISTANCE WITH GENERALIZED WEAKNESS PRESENT. SAFETY MEASURES IN PLACE, BED IS LOCKED AND AT LOWEST POSITION, CALL LIGHT WITHIN REACH, SIDE RAILS UP X 3, APPROPRIATE ISOLATION PRECAUTIONS IN PLACE. KEPT COMFORTABLE. WILL CONTINUE TO MONITOR AND FALLOW RINA
[2022-01-16 08:00] VITALS: BP 122/65
[2022-01-16 08:52] LABS: BASOPHILS % (AUTO) 0.1 % (0.0-2.0); EOSINOPHILS % (AUTO) 1.4 % (0.0-6.0); HEMATOCRIT 36 % (39-51); HEMOGLOBIN 11.9 g/dL (13.5-17.5); LYMPHOCYTES # (AUTO) 0.7 K/uL (0.8-4.8); LYMPHOCYTES % (AUTO) 6.3 % (20.0-44.0); MEAN CORPUSCULAR HGB CONC 33 g/dl (31.0-36.0); MEAN CORPUSCULAR VOLUME 92 fL (80-96); MONOCYTES # (AUTO) 1.3 K/uL (0.1-1.30); MONOCYTES % (AUTO) 11.3 % (2.0-12.0); NEUTROPHILS # (AUTO) 9.2 K/uL (1.8-8.9); NEUTROPHILS % (AUTO) 80.9 % (43.0-81.0); PLATELET COUNT (AUTO) 297 K/uL (150-450); RED BLOOD CELL COUNT(AUTO) 3.91 MIL/uL (4.5-6.0); WHITE BLOOD COUNT (AUTO) 11.4 K/uL (4.3-11.0)
[2022-01-16 08:53] LABS: CALCIUM, SERUM 7.5 mg/dL (8.5-10.1); CREATININE 0.9 mg/dL (0.6-1.3); MAGNESIUM 2.2 mg/dL (1.8-2.4); PHOSPHORUS 3.6 mg/dL (2.5-4.9); POTASSIUM 3.9 mmol/L (3.5-5.1)
[2022-01-16] MEDS: ASPIRIN 81 MG TAB.CHEW PO SCH (08:53)
[2022-01-16] MEDS: PANTOPRAZOLE 40 MG TABLET.DR PO SCH (08:53)
[2022-01-16] MEDS: DULOXETINE HCL 20 MG CAPSULE.DR PO SCH ×2 (08:53→17:09)
[2022-01-16] MEDS: LOSARTAN POTASSIUM 50 MG TABLET PO SCH (08:54)
[2022-01-16] MEDS: risperiDONE 1 MG TABLET PO SCH ×2 (08:54→17:09)
[2022-01-16 12:00] VITALS: BP 96/57
[2022-01-16] MEDS: IV D5/0.45 NACL 1,000 ML IV PRN (15:24)
[2022-01-16 16:00] VITALS: BP 119/57
--- NOTE | 2022-01-16 18:28 | NUR ---
RN CLOSING NOTE PATIENT IS IN BED SLEEPING A0 X 3, IN NO ACUTE DISTRESS, BREATHING EVEN AND UNLABORED, SATURATION AT 98% ON ROOM AIR, SR ON THE MONITOR,. IV LINE AT CHAN 22G RUNNING WITH D5 NS 75 ML/HR SKIN TEAR NOTED AT R HAND, AND OPEN WOUND NOTED AT COCCYX MEASURING APPROX 1.5 CM X 1 CM X 0.2 CM, PATIENT IS AMBULATORY WITH ASSISTANCE WITH GENERALIZED WEAKNESS PRESENT. SAFETY MEASURES IN PLACE, BED IS LOCKED AND AT LOWEST POSITION, CALL LIGHT WITHIN REACH, SIDE RAILS UP X 3, APPROPRIATE ISOLATION PRECAUTIONS IN PLACE. KEPT COMFORTABLE. WILL ENDORSE PLANER TAILER
--- NOTE | 2022-01-16 19:15 | NUR ---
RN NOTE RECEIVED PT IN BED, AA0 X 3, IN NO ACUTE DISTRESS, BREATHING EVEN AND UNLABORED, SATURATION AT 97% ON ROOM AIR, SR ON THE MONITOR, HR IS 79. IV LINE AT CHAN 22G PATENT AND FLUSHING WELL, IV FLUID OF D51/2 NS INFUSING AT 75 ML/HR. PT NOTED TO BE INDEPENDENT WITH BED MOBILITY, WITH GENERALIZED WEAKNESS PRESENT. SAFETY MEASURES IN PLACE, BED IS LOCKED AND AT LOWEST POSITION, SIDE RAILS UP X 3, APPROPRIATE ISOLATION PRECAUTIONS IN PLACE. KEPT COMFORTABLE. WILL CONTINUE TO MONITOR AND CARRY OUT MD ORDERS.
[2022-01-16 20:00] VITALS: BP 139/85
[2022-01-16] MEDS: CEFTRIAXONE 1 G in IV D5W 50 ML IV SCH (22:29)
[2022-01-16] MEDS: ENOXAPARIN SODIUM 40 MG/0.4 ML DISP.SYRIN SQ SCH (22:30)
[2022-01-16] MEDS: DOCUSATE SODIUM 100 MG CAPSULE PO SCH (22:30)
[2022-01-16] MEDS: ATORVASTATIN 10 MG TABLET PO SCH (22:30)
[2022-01-16] MEDS: TAMSULOSIN 0.4 MG CAP.SR.24H PO SCH (22:30)
[2022-01-17] VITALS: BP 125/65
[2022-01-17 04:00] VITALS: BP 137/68
--- NOTE | 2022-01-17 07:20 | NUR ---
RN OPEN NOTE PATIENT IS IN BED SLEEPING A0 X 3, IN NO ACUTE DISTRESS, BREATHING EVEN AND UNLABORED, ON ROOM AIR ,SATURATION AT 99% , SR ON THE MONITOR,. IV LINE AT CHAN 22G RUNNING WITH D5 1/2 NS AT 75 ML/HR BOTH UPPER EXTREMITIES BRUISES , SKIN TEAR NOTED AT R HAND, AND OPEN WOUND NOTED AT COCCYX MEASURING APPROX 1.5 CM X 1 CM X 0.2 CM, PATIENT IS AMBULATORY WITH ASSISTANCE WITH GENERALIZED WEAKNESS PRESENT. SAFETY MEASURES IN PLACE, BED IS LOCKED AND AT LOWEST POSITION, CALL LIGHT WITHIN REACH, SIDE RAILS UP X 3, APPROPRIATE ISOLATION PRECAUTIONS IN PLACE. KEPT COMFORTABLE. WILL CONTINUE TO MONITOR AND FALLOW RINA
[2022-01-17 08:00] VITALS: BP 130/62
[2022-01-17 08:01] LABS: CALCIUM, SERUM 7.6 mg/dL (8.5-10.1); CREATININE 0.9 mg/dL (0.6-1.3); POTASSIUM 4.3 mmol/L (3.5-5.1)
[2022-01-17] MEDS: LOSARTAN POTASSIUM 50 MG TABLET PO SCH (08:37)
[2022-01-17] MEDS: ASPIRIN 81 MG TAB.CHEW PO SCH (08:38)
[2022-01-17] MEDS: risperiDONE 1 MG TABLET PO SCH ×2 (08:38→17:46)
[2022-01-17] MEDS: DULOXETINE HCL 20 MG CAPSULE.DR PO SCH ×2 (08:38→17:46)
[2022-01-17] MEDS: PANTOPRAZOLE 40 MG TABLET.DR PO SCH (08:39)
[2022-01-17 09:29] LABS: BASOPHILS % (AUTO) 0.3 % (0.0-2.0); EOSINOPHILS % (AUTO) 1.6 % (0.0-6.0); HEMATOCRIT 39 % (39-51); HEMOGLOBIN 12.4 g/dL (13.5-17.5); LYMPHOCYTES # (AUTO) 0.8 K/uL (0.8-4.8); LYMPHOCYTES % (AUTO) 6.3 % (20.0-44.0); MEAN CORPUSCULAR HGB CONC 32 g/dl (31.0-36.0); MEAN CORPUSCULAR VOLUME 96 fL (80-96); MONOCYTES # (AUTO) 1.3 K/uL (0.1-1.30); MONOCYTES % (AUTO) 9.8 % (2.0-12.0); NEUTROPHILS # (AUTO) 10.9 K/uL (1.8-8.9); PLATELET COUNT (AUTO) 260 K/uL (150-450); RED BLOOD CELL COUNT(AUTO) 4.03 MIL/uL (4.5-6.0); WHITE BLOOD COUNT (AUTO) 13.3 K/uL (4.3-11.0)
[2022-01-17] MEDS: IV D5/0.45 NACL 1,000 ML IV PRN (11:50)
[2022-01-17 12:00] VITALS: BP 125/65
[2022-01-17 16:00] VITALS: BP 142/70
--- NOTE | 2022-01-17 19:59 | NUR ---
RECEIVED PATIENT IN BED, ALERT/ORIENTED X2-3, FORGETFUL, STABLE ON ROOM AIR, FULL LIQUID DIET, ASPIRATION PRECAUTION, PER PCR RESULTS, COVID (-), IVF @ 75 ML/HR, ASPIRATION AND FALL PRECAUTION, KEPT SAFE, WILL CONTINUE TO MONITOR.
[2022-01-17 20:00] VITALS: BP 141/93
[2022-01-17] MEDS: CEFTRIAXONE 1 G in IV D5W 50 ML IV SCH (20:28)
[2022-01-17] MEDS: ENOXAPARIN SODIUM 40 MG/0.4 ML DISP.SYRIN SQ SCH (20:29)
[2022-01-17] MEDS: DOCUSATE SODIUM 100 MG CAPSULE PO SCH (21:31)
[2022-01-17] MEDS: ATORVASTATIN 10 MG TABLET PO SCH (21:31)
[2022-01-17] MEDS: TAMSULOSIN 0.4 MG CAP.SR.24H PO SCH (21:31)
[2022-01-18 00:34] VITALS: BP 141/93
[2022-01-18] MEDS: IV D5/0.45 NACL 1,000 ML IV PRN ×2 (03:26→16:47)
[2022-01-18 04:00] VITALS: BP 141/93
--- NOTE | 2022-01-18 05:54 | NUR ---
ALERT/ORIENTED X2, ROOM AIR, SPO2 94%, NO COMPLAIN OF PAIN, INCONTINENT, CONDOM CATH IN PLACE, ADEQUATE URINE OUTPUT, KELVIN MIDLINE #18 WAS INSERTED, PREVIOUS IV LINE INFILTRATED, CHAN OFFLOADED WITH PILLOW. FULL LIQUID DIET, CRUSHED MEDS WITH APPLE SAUCE, INFREQUENT COUGHING, FOR ST EVAL. PER PULMONOGIST, MAINTAIN SPO2 > 92%, NEGATIVE COVID VIA PCR, CONTINUE IVF, ASPIRATION PRECAUTIONS, FALL PRECAUTIONS.
--- NOTE | 2022-01-18 07:27 | NUR ---
DIESEL POWERPLANT MECHANIC HELPER OPENING NOTE RECEIVED PT ASLEEP IN BED, EASILY AROUSED. PT IS A/O X 2-3. ON RA, TOLERATING WELL. NO SOB NOTED. NOT IN ANY SIGN OF RESPIRATORY DISTRESS. ON TELE BEATER ROOM SUPERVISOR WITH CURRENT READING OF SINUS RHYTHM, HR 68. IV ACCESS IN KELVIN MIDLINE G #18 INTACT AND PATENT WITH D5 1/2 NS INFUSING AT 75ML/HR. SAFETY MEASURES IN PLACE: BED IN LOWEST AND LOCKED POSITION, SIDE RAILS UP X2, AND CALL LIGHT WITHIN REACH. WILL CONTINUE TO MONITOR PT.
[2022-01-18] MEDS: PANTOPRAZOLE 40 MG TABLET.DR PO SCH (07:52)
[2022-01-18 08:00] VITALS: BP 161/78
[2022-01-18] MEDS: DULOXETINE HCL 20 MG CAPSULE.DR PO SCH ×2 (09:00→16:11)
[2022-01-18] MEDS: LOSARTAN POTASSIUM 50 MG TABLET PO SCH (09:00)
[2022-01-18] MEDS: risperiDONE 1 MG TABLET PO SCH ×2 (09:00→16:11)
[2022-01-18] MEDS: ASPIRIN 81 MG TAB.CHEW PO SCH (09:00)
[2022-01-18 10:02] LABS: ALBUMIN 2.1 g/dL (3.4-5.0); BILIRUBIN,DIRECT 0.2 mg/dL (0.0-0.2); TOTAL PROTEIN, SERUM 5.7 g/dL (6.4-8.2)
[2022-01-18 12:00] VITALS: BP 140/67
[2022-01-18 16:00] VITALS: BP 125/58
--- NOTE | 2022-01-18 19:21 | NUR ---
PAPER RECLAIMING MACHINE OPERATOR CLOSING NOTE PT ASLEEP IN BED, EASILY AROUSED. PT IS A/O X 2-3. ON RA, TOLERATING WELL. NO SOB NOTED. NOT IN ANY SIGN OF RESPIRATORY DISTRESS. ON TELE SOFTWARE DEVELOPMENT INTERN WITH CURRENT READING OF SINUS RHYTHM, HR 65. IV ACCESS IN KELVIN MIDLINE G #18 INTACT AND PATENT WITH D5 1/2 NS INFUSING AT 75ML/HR. ALL NEEDS ATTENDED. KEPT CLEAN AND COMFORTABLE. KEPT HOB ELEVATED FOR ASPIRATION PRECAUTION. SAFETY MEASURES IN PLACE: BED IN LOWEST AND LOCKED POSITION, BED ALARM ON, SIDE RAILS UP X2, AND CALL LIGHT WITHIN REACH. WILL ENDORSE TO ASSESSMENT NURSE NURSE FOR RINA.
[2022-01-18 20:00] VITALS: BP 144/66
[2022-01-18] MEDS: ATORVASTATIN 10 MG TABLET PO SCH (21:08)
[2022-01-18] MEDS: TAMSULOSIN 0.4 MG CAP.SR.24H PO SCH (21:08)
[2022-01-18] MEDS: CEFTRIAXONE 1 G in IV D5W 50 ML IV SCH (21:08)
[2022-01-18] MEDS: DOCUSATE SODIUM 100 MG CAPSULE PO SCH (21:08)
[2022-01-18] MEDS: ENOXAPARIN SODIUM 40 MG/0.4 ML DISP.SYRIN SQ SCH (21:10)
--- NOTE | 2022-01-18 23:11 | NUR ---
ACCOUNTING RECRUITER OPENING NOTE PT RECEIVED IN BED, ASLEEP BUT EASILY AROUSABLE, A&O X2-3, CALM, COOPERATIVE. PT ON RA WITH CURRENT O2SAT OF 100%; NO S/S OF RESP DISTRESS, NO SOB OR COUGH, NON-LABORED AND EQUAL BREATHING. PT ATTACHED TO EXTERNAL MONITOR, SR WITH CURRENT HR OF 71. PT NOTED TO HAVE CONDOM CATHETER; CONDOM CATH INTACT AND PATENT, NO SIGNS OF LEAKING, DRAINING CLEAR AND YELLOW URINE. KELVIN MIDLINE INTACT AND PATENT, FLUSHES EASILY WITH NO RESISTANCE, HAS D5 1/2 NS RUNNING AT 75 ML/HR. BED IN LOWEST POSITION, CALL LIGHT WITHIN REACH, SIDE RAILS UP X3. WILL CONTINUE TO MONITOR THROUGHOUT THE NIGHT.
[2022-01-19] VITALS: BP 128/75
--- NOTE | 2022-01-19 00:05 | NUR ---
RN NOTE PT NOTED TO HAVE TEMPERATURE OF 100F. PT ADMINISTERED TYLENOL 650 MG. WILL MONITOR FOR EFFECTIVENESS.
[2022-01-19 04:00] VITALS: BP 119/67
[2022-01-19] MEDS: IV D5/0.45 NACL 1,000 ML IV PRN ×2 (05:17→19:35)
--- NOTE | 2022-01-19 06:15 | NUR ---
[employer] CLOSING NOTE PT REMAINS IN BED, ASLEEP BUT EASILY AROUSABLE; SLEPT INTERMITTENTLY THROUGHOUT THE NIGHT; A&O X2, CALM, COOPERATIVE. REMAINS ON RA WITH O2SAT 100% THROUGHOUT THE NIGHT; NO S/S OF RESP DISTRESS, NO SOB OR COUGH, NON-LABORED AND EQUAL BREATHING. ATTACHED TO EXTERNAL MONITOR, SR WITH HR RANGING FROM 66-81 THROUGHOUT THE NIGHT. CONDOM CATHETER REMAINS IN PLACE, INTACT, DRAINING CLEAR AND YELLOW URINE. KELVIN MIDLINE INTACT AND PATENT, FLUSHES EASILY WITH NO RESISTANCE, D5 1/2 NS RUNNING AT 75 ML/HR. AFTER ADMINISTERING TYLENOL TEMP WENT DOWN FROM 100.0 TO 99.2. ALL DUE MEDS ADMINISTERED DURING THE NIGHT. BED IN LOWEST POSITION, CALL LIGHT WITHIN REACH, SIDE RAILS UP X3. WILL ENDORSE TO DAYSHIFT NURSE TO CONTINUE CARE.
--- NOTE | 2022-01-19 07:30 | NUR ---
RN/TELE OPENING NOTE REPORT RECEIVED FROM BOOKMOBILE CLERK NURSE. PATIENT ASLEEP LAYING ON BED A&OX2-3. ALL VSS. PATIENT SATTING AT 97% ON ROOM AIR.VOIDING WITH CONDOM CATHETER. DIET FULL LIQUID WITH THICKENER . IV KELVIN MIDLINE PATENT, INTACT AND FLUSHED. ALL SAFETY FALL PRECAUTIONS IN PLACE BED LOCK ON, BED IN LOWEST POSITION, BED ALARM ON, SIDE RAILS UP, CALL LIGHT WITHIN REACH. WILL CONTINUE TO MONITOR.
[2022-01-19 08:00] VITALS: BP 146/60
[2022-01-19] MEDS: ASPIRIN 81 MG TAB.CHEW PO SCH (08:51)
[2022-01-19] MEDS: PANTOPRAZOLE 40 MG TABLET.DR PO SCH (08:51)
[2022-01-19] MEDS: DULOXETINE HCL 20 MG CAPSULE.DR PO SCH ×2 (08:51→17:17)
[2022-01-19] MEDS: LOSARTAN POTASSIUM 50 MG TABLET PO SCH (08:52)
[2022-01-19] MEDS: risperiDONE 1 MG TABLET PO SCH ×2 (08:52→17:17)
[2022-01-19 12:00] VITALS: BP 152/79
[2022-01-19 16:00] VITALS: BP 140/72
--- NOTE | 2022-01-19 18:56 | NUR ---
RN NOTE ALL CARE ENDORSED TO THE CNA LTC NURSE.
--- NOTE | 2022-01-19 19:30 | NUR ---
CABLE DISPATCHER OPENING NOTE RECEIVED PT AWAKE IN BED, A/O X 2. ON RA, TOLERATING WELL. NO SOB NOTED. NOT IN ANY SIGN OF RESPIRATORY DISTRESS. ON TELE COUNTERINTELLIGENCE ANALYST WITH CURRENT READING OF SINUS RHYTHM, HR 81. IV ACCESS ON KELVIN MIDLINE G #18 INTACT AND PATENT RUNNING D5 1/2 NS AT 75ML/HR. SAFETY MEASURES IN PLACE, BED IN LOWEST AND LOCKED POSITION, SIDE RAILS UP X2, AND CALL LIGHT WITHIN REACH. WILL CONTINUE TO MONITOR THROUGHOUT THE SHIFT..
[2022-01-19 20:00] VITALS: BP 160/70
[2022-01-19] MEDS: ATORVASTATIN 10 MG TABLET PO SCH (21:22)
[2022-01-19] MEDS: TAMSULOSIN 0.4 MG CAP.SR.24H PO SCH (21:22)
[2022-01-19] MEDS: DOCUSATE SODIUM 100 MG CAPSULE PO SCH (21:22)
[2022-01-19] MEDS: CEFTRIAXONE 1 G in IV D5W 50 ML IV SCH (21:22)
[2022-01-19] MEDS: ENOXAPARIN SODIUM 40 MG/0.4 ML DISP.SYRIN SQ SCH (21:25)
[2022-01-20] VITALS: BP 149/98
[2022-01-20 04:00] VITALS: BP 142/44
[2022-01-20] MEDS: IV D5/0.45 NACL 1,000 ML IV PRN (05:53)
--- NOTE | 2022-01-20 06:53 | NUR ---
DIGITAL MANAGER CLOSING NOTE NO SIGNIFICANT CHANGES THROUGHOUT THE SHIFT, PT AWAKE IN BED, A/O X 2. ON RA, TOLERATING WELL. NO SOB NOTED. NOT IN ANY SIGN OF RESPIRATORY DISTRESS. ON TELE ROOFER HELPER WITH CURRENT READING OF SINUS RHYTHM, V PACING AT 66. IV ACCESS ON KELVIN MIDLINE G #18 INTACT AND PATENT RUNNING D5 1/2 NS AT 75ML/HR. SAFETY MEASURES IN PLACE, ALL DUE MEDS GIVEN, KEPT DRY AND CLEAN, BED IN LOWEST AND LOCKED POSITION, SIDE RAILS UP X2, AND CALL LIGHT WITHIN REACH. WILL ENDORSE TO AM SHIFT NURSE FOR CONTINUITY OF CARE.
--- NOTE | 2022-01-20 07:25 | NUR ---
FINANCE OFFICER OPENING NOTES: RECEIVED PATIENT IN BED, AWAKE, ALERT ORIENTED X 3. BREATHING EVEN AND UNLABORED. NO RESPIRATORY DISTRESS NOTED. ON RA WITH OXYGEN SATURATION OF 97%. SR ON TELE MONITOR WITH HR OF 70, V PACING. IV ACCESS NOTED ON LEFT UPPER ARM MIDLINE # 18, INFUSING WITH D51/2 NS @ 75 ML/HR, IV SITE INTACT AND PATENT, NO S/S INFILTRATION. HOB KEPT ELEVATED, CALL LIGHT WITHIN REACH, BED LOCKED AND IN LOWEST POSITION. ALL SAFETY MEASURES IMPLEMENTED. WILL CONTINUE TO MONITOR PATIENT THROUGHOUT SHIFT.
[2022-01-20 08:00] VITALS: BP 144/68
[2022-01-20] MEDS: PANTOPRAZOLE 40 MG TABLET.DR PO SCH (08:16)
[2022-01-20] MEDS ORDERED: FUROSEMIDE 20 MG/2 ML VIAL IV ONE (08:30)
--- NOTE | 2022-01-20 08:30 | NUR ---
DR MEDRANO CAME TO SEE THE PATIENT AND ORDERED TO STOP IV FLUIDS. ORDER NOTED AND CARRIED OUT.
--- NOTE | 2022-01-20 08:35 | NUR ---
SPEECH THERAPIST CAME BY AND NOTED THAT THE PATIENT HAS BEEN COUGHING A LOT WHILE SHE WAS TRYING TO GIVE SOMETHING TO THE PATIENT PO AND STATED THAT THE PATIENT IS AT RISK FOR ASPIRATION. WILL MONITOR PATIENT
[2022-01-20] MEDS: ASPIRIN 81 MG TAB.CHEW PO SCH (09:29)
[2022-01-20] MEDS: DULOXETINE HCL 20 MG CAPSULE.DR PO SCH ×2 (09:31→17:00)
[2022-01-20] MEDS: risperiDONE 1 MG TABLET PO SCH ×2 (09:31→17:00)
[2022-01-20] MEDS: LOSARTAN POTASSIUM 50 MG TABLET PO SCH (09:31)
--- NOTE | 2022-01-20 09:31 | NUR ---
TRIED TO GIVE MEDS TO THE PATIENT CAREFULLY ASSESSING HIS SWALLOWING. PATENT WAS ABLE TO SWALLOW HIS CRUSHED MEDS ONE AT A TIME WITH A PUDDING BUT NOTED COUGHING AT THE END. CONTACTED
--- NOTE | 2022-01-20 10:42 | NUR ---
DR MEDRANO ORDERED FOR ANOTHER SWALLOWING EVALUATION TOMORROW AND FOR THE PATIENT TO BE ON NPO UNTIL ST EVALUATION. ORDER NOTED AND CARRIED OUT
[2022-01-20 12:00] VITALS: BP 106/51
[2022-01-20 16:00] VITALS: BP 157/77
[2022-01-20] MEDS: IV D5/ 0.9% NACL 1,000 ML IV PRN (18:12)
--- NOTE | 2022-01-20 19:01 | NUR ---
RN CLOSING NOTES: PATIENT IN BED. AWAKE, ALERT AND ORIENTED X 3. NO SOB NOTED. ON SRB WITH HR OF 76, V PACING. PATINT HAS D5NS ORDERED BY DR MEDRANO PREVIOUSLY RUNNING @ 75ML/HR ON LEFT UPPER ARM MIDLINE, INTACT AND PATENT. BED LOCKED AND IN LOWEST POSITION, CALL LIGHT WITHIN REACH. REMAINS ON NPO STATUS UNTIL ST EVALUATION TOMORROW 01/21/22. WILL ENDORSE TO NEXT SHIFT NURSE FOR CONTINUITY OF CARE.
--- NOTE | 2022-01-20 19:57 | NUR ---
RN NOTE PT COMPLAINING OF HEADACHE RATED 10/10 ON PAIN SCALE. BP CHECKED AT 164/69. INFORMED SCIENTIFIC TECHNICAL WRITER POOJA, ORDERED DILAUDID 1 MG IV X1. ORDER TAKEN AND CARRIED OUT.
[2022-01-20 20:00] VITALS: BP 164/69
[2022-01-20] MEDS ORDERED: HYDROMORPHONE 1 MG/1 ML DISP.SYRIN IV ONE (20:00)
--- NOTE | 2022-01-20 20:05 | NUR ---
PHOTONICS ENGINEERING TECHNICIAN OPENING NOTE RECEIVED PT AWAKE IN BED, A/O X 2. ON RA, TOLERATING WELL. NO SOB NOTED. NOT IN ANY SIGN OF RESPIRATORY DISTRESS. ON TELE DANCER OR CHOREOGRAPHER WITH CURRENT READING OF SINUS RHYTHM. IV ACCESS ON KELVIN MIDLINE G #18 INTACT AND PATENT RUNNING D5 1/2 NS AT 75ML/HR. SAFETY MEASURES IN PLACE, ON ASPIRATION PRECAUTION, WILL MAINTAIN NPO STATUS, BED IN LOWEST AND LOCKED POSITION, SIDE RAILS UP X2. AND CALL LIGHT WITHIN REACH. WILL CONTINUE TO MONITOR THROUGHOUT THE SHIFT.
[2022-01-20] MEDS: CEFTRIAXONE 1 G in IV D5W 50 ML IV SCH (20:17)
[2022-01-20] MEDS: ENOXAPARIN SODIUM 40 MG/0.4 ML DISP.SYRIN SQ SCH (20:18)
[2022-01-20] MEDS: DOCUSATE SODIUM 100 MG CAPSULE PO SCH (22:00)
[2022-01-20] MEDS: TAMSULOSIN 0.4 MG CAP.SR.24H PO SCH (22:00)
[2022-01-20] MEDS: ATORVASTATIN 10 MG TABLET PO SCH (22:00)
[2022-01-21] VITALS: BP 147/69
[2022-01-21 04:00] VITALS: BP 185/76
--- NOTE | 2022-01-21 04:01 | NUR ---
RN NOTE NOTED PATIENT BLOOD PRESSURE AT 185/76. INFORMED PACKING FLOOR WORKER POOJA. SHE THEN ORDERED HYDRALAZINE 10 MG IV X1. ORDER TAKEN AND CARRIED OUT. WILL CONTINUE TO MONITOR PT CLOSELY.
[2022-01-21] MEDS: IV D5/ 0.9% NACL 1,000 ML IV PRN ×2 (04:23→18:19)
[2022-01-21] MEDS ORDERED: hydrALAZINE HCL IV 20 MG VIAL IV ONE (04:30)
--- NOTE | 2022-01-21 07:12 | NUR ---
FARM OPERATIONS MANAGER CLOSING NOTE PT AWAKE IN BED, A/O X 2. ON RA, TOLERATING WELL. NO SOB NOTED. NOT IN ANY SIGN OF RESPIRATORY DISTRESS. ON TELE FUR REMODELER WITH CURRENT READING OF SINUS RHYTHM, V PACING AT 69. IV ACCESS ON KELVIN MIDLINE G #18 INTACT AND PATENT RUNNING D5 1/2 NS AT 75ML/HR. SAFETY MEASURES IN PLACE, NPO STATUS, ALL IV MEDS GIVEN, KEPT DRY AND CLEAN, BED IN LOWEST AND LOCKED POSITION, SIDE RAILS UP X2, AND CALL LIGHT WITHIN REACH. WILL ENDORSE TO AM SHIFT NURSE FOR CONTINUITY OF CARE.
--- NOTE | 2022-01-21 08:05 | NUR ---
COOPERER NOTE PT AWAKE IN BED, A/O X 2. ON RA, NO SOB NOTED. NOT IN ANY SIGN OF RESPIRATORY DISTRESS. ON TELE ANIMAL KEEPER HEAD WITH CURRENT READING OF SINUS RHYTHM, A PACING AT 71. IV ACCESS ON KELVIN MIDLINE G #18 INTACT AND PATENT RUNNING D5 1/2 NS AT 75ML/HR. SAFETY MEASURES IN PLACE, NPO STATUS,, KEPT DRY AND CLEAN, BED IN LOWEST AND LOCKED POSITION, SIDE RAILS UP X2, AND CALL LIGHT WITHIN REACH. WILL MONITOR
[2022-01-21] MEDS: LOSARTAN POTASSIUM 50 MG TABLET PO SCH (08:48)
[2022-01-21] MEDS: ASPIRIN 81 MG TAB.CHEW PO SCH (08:52)
[2022-01-21] MEDS: risperiDONE 1 MG TABLET PO SCH ×2 (08:52→16:26)
[2022-01-21] MEDS: DULOXETINE HCL 20 MG CAPSULE.DR PO SCH ×2 (08:52→16:26)
[2022-01-21] MEDS: PANTOPRAZOLE 40 MG TABLET.DR PO SCH (08:53)
[2022-01-21 10:12] VITALS: BP 158/57
[2022-01-21 10:16] LABS: BASOPHILS % (AUTO) 0.3 % (0.0-2.0); EOSINOPHILS % (AUTO) 0.6 % (0.0-6.0); HEMATOCRIT 33 % (39-51); LYMPHOCYTES # (AUTO) 0.5 K/uL (0.8-4.8); LYMPHOCYTES % (AUTO) 3.3 % (20.0-44.0); MEAN CORPUSCULAR HGB CONC 33 g/dl (31.0-36.0); MEAN CORPUSCULAR VOLUME 94 fL (80-96); MONOCYTES # (AUTO) 1.7 K/uL (0.1-1.30); MONOCYTES % (AUTO) 11.8 % (2.0-12.0); NEUTROPHILS # (AUTO) 12.1 K/uL (1.8-8.9); PLATELET COUNT (AUTO) 317 K/uL (150-450); RED BLOOD CELL COUNT(AUTO) 3.54 MIL/uL (4.5-6.0); WHITE BLOOD COUNT (AUTO) 14.4 K/uL (4.3-11.0)
[2022-01-21 10:35] LABS: CALCIUM, SERUM 7.9 mg/dL (8.5-10.1); CREATININE 0.8 mg/dL (0.6-1.3); MAGNESIUM 2.2 mg/dL (1.8-2.4)
--- NOTE | 2022-01-21 10:50 | NUR ---
telecommunication lines repairer note pt at bedside,patient able to get up using a walker, called to st spoke with pt department [facility] will come tomorrow for swallow rola red able tor take meds but crushed. will monitor
--- NOTE | 2022-01-21 11:07 | NUR ---
mental telepathist note spoke with dr raza notified that tomorrow st will come for reval also aware that pt was done and able to stand up and patient able to take po meds but crushed has cough some times
--- NOTE | 2022-01-21 11:10 | NUR ---
teletypewriter operator note per dr bryan ok to try to give po meds
[2022-01-21 12:00] VITALS: BP 139/66
--- NOTE | 2022-01-21 15:00 | NUR ---
telephone engineer note per crystal sepulveda wound care nurse order given for sacral area , order carried out Addendum: 01/21/22 at 1540 by NATE CHOUDHURY RN wrong chart ,wrong entry
[2022-01-21 16:00] VITALS: BP 132/72
--- NOTE | 2022-01-21 16:27 | NUR ---
telephone order supervisor note noted patient become cough hold po meds ,will f\u
--- NOTE | 2022-01-21 18:44 | NUR ---
ATTACHE NOTE PATIENT IN BED ,ALERT AWAKE,ON TELE MONITOR SR ,ON NPO STATUS AT THIS TIME, KELVIN MID LINE PLACE ,ON IVF ORDERED , BED IN LOWEST AND LOCKED POSITION , CALL LIGHT WITHIN REACH , WILL CONT TO MONITOR CLOSELY, NO SOB NOTED AT THIS TIME, ON RA
--- NOTE | 2022-01-21 19:30 | NUR ---
AUDIO SPECIALIST OPENING NOTE RECEIVED PT IN BED, AWAKE, A/O X 1-2. ABLE TO VERBALIZE NEEDS. CURRENTLY ON RA, TOLERATING WELL. NO SOB NOTED. NO S/SX OF RESPIRATORY DISTRESS NOTED AT THIS TIME. ON TELE MONITOR WITH CURRENT READING OF SR WITH HR IN THE 70S. IV ACCESS NOTED IN KELVIN MIDLINE G #18 INTACT AND PATENT RUNNING D5 1/2 NS AT 75ML/HR. ALL SAFETY MEASURES IN PLACE: ON ASPIRATION PRECAUTION, NPO STATUS, BED IN LOWEST AND LOCKED POSITION, SIDE RAILS UP X2. CALL LIGHT WITHIN REACH. WILL CONTINUE TO MONITOR THROUGHOUT THE SHIFT.
[2022-01-21 20:00] VITALS: BP 106/71
[2022-01-21] MEDS: CEFTRIAXONE 1 G in IV D5W 50 ML IV SCH (20:21)
[2022-01-21] MEDS: ENOXAPARIN SODIUM 40 MG/0.4 ML DISP.SYRIN SQ SCH (20:23)
[2022-01-21] MEDS: ATORVASTATIN 10 MG TABLET PO SCH (22:00)
[2022-01-21] MEDS: DOCUSATE SODIUM 100 MG CAPSULE PO SCH (22:00)
[2022-01-21] MEDS: TAMSULOSIN 0.4 MG CAP.SR.24H PO SCH (22:00)
--- NOTE | 2022-01-21 22:50 | NUR ---
RN NOTE PT STILL IN NPO STATUS. DUE FOR SWALLOW RE EVAL TOMORROW. WITHHELD PO MEDS FOR TONIGHT - (COLACE, FLOMAX, LIPITOR).
[2022-01-22] VITALS: BP 164/69
--- NOTE | 2022-01-22 00:40 | NUR ---
RN NOTE PT'S BP ELEVATED 164/69. TOOK TWICE AND SBP >160. PRESS ASSISTANT ZECHARIAH NOTIFIED. ORDERED MORPHINE IVP PRN. CARRIED OUT AND GIVEN. WILL REASSESS IN 30 MINUTES.
[2022-01-22] MEDS: MORPHINE SULFATE INJ 2 MG/ML DISP.SYRIN IVP PRN ×3 (01:08→18:07)
[2022-01-22 04:00] VITALS: BP 160/66
--- NOTE | 2022-01-22 05:54 | NUR ---
RN NOTE DUE MEDS GIVEN. NEEDS ATTENDED TO. KEPT PT CLEAN AND DRY. TURNED AND REPOSITIONED. WILL ENDORSE TO AM SHIFT NURSE FOR RINA.
[2022-01-22] MEDS: IV D5/ 0.9% NACL 1,000 ML IV PRN ×2 (07:06→21:35)
[2022-01-22] MEDS: PANTOPRAZOLE 40 MG TABLET.DR PO SCH (07:30)
--- NOTE | 2022-01-22 07:30 | NUR ---
clerk telegraph service opening note Patient is awake in bed. patient is alert and oriented x2. patient is on room air. o2 saturating 94%. patient is currently on sinus rhytm. iv access on left upper arm midline 18 guage. iv intact and patient. currently running D 5 1/2 NS at 75 ml/hr. patient is npo due to pending speech eval.all safety measures in place. bed locked in lowest position. side rails up x2. call light within reach. will continue to assess throughout shift.
[2022-01-22 08:00] VITALS: BP 154/70
--- NOTE | 2022-01-22 10:00 | NUR ---
speech therapist saw patient. patient on pureed diet with strict aspiration precautions
[2022-01-22] MEDS: ASPIRIN 81 MG TAB.CHEW PO SCH (11:32)
[2022-01-22] MEDS: LOSARTAN POTASSIUM 50 MG TABLET PO SCH (11:32)
[2022-01-22] MEDS: risperiDONE 1 MG TABLET PO SCH ×2 (11:33→17:59)
[2022-01-22] MEDS: DULOXETINE HCL 20 MG CAPSULE.DR PO SCH ×2 (11:33→17:59)
[2022-01-22 12:00] VITALS: BP 144/61
[2022-01-22 16:00] VITALS: BP 157/63
--- NOTE | 2022-01-22 19:30 | NUR ---
DIRECTOR OF PRODUCT MARKETING OPENING NOTE RECEIVED PT IN BED, AWAKE, A/O X 1-2. ABLE TO VERBALIZE NEEDS. CURRENTLY ON RA, TOLERATING WELL. NO SOB NOTED. NO S/SX OF RESPIRATORY DISTRESS NOTED AT THIS TIME. ON TELE MONITOR WITH CURRENT READING OF SR WITH HR IN THE 80S. IV ACCESS NOTED IN KELVIN MIDLINE G #18 INTACT AND PATENT RUNNING D5 1/2 NS AT 75ML/HR. ALL SAFETY MEASURES IN PLACE: ON STRICT ASPIRATION PRECAUTION, BED IN LOWEST AND LOCKED POSITION, SIDE RAILS UP X2. CALL LIGHT WITHIN REACH. WILL CONTINUE TO MONITOR THROUGHOUT THE SHIFT.
--- NOTE | 2022-01-22 19:33 | NUR ---
teleprinter installer closing note Patient is awake in bed. patient is alert and oriented x2. patient is on room air. o2 saturating 94%. patient is currently on sinus rhythm. iv access on left upper arm midline 18 guage. iv intact and patient. all needs met.currently running D 5 1/2 NS at 75 ml/hr. patient is on pureed diet with strict aspiration precautions. all safety measures in place. bed locked in lowest position. side rails up x2. call light within reach. endorsed to book shelver rn
[2022-01-22 20:00] VITALS: BP 150/88
[2022-01-22] MEDS: CEFTRIAXONE 1 G in IV D5W 50 ML IV SCH (20:41)
[2022-01-22] MEDS: ENOXAPARIN SODIUM 40 MG/0.4 ML DISP.SYRIN SQ SCH (20:46)
[2022-01-22] MEDS: ATORVASTATIN 10 MG TABLET PO SCH (21:34)
[2022-01-22] MEDS: TAMSULOSIN 0.4 MG CAP.SR.24H PO SCH (21:34)
[2022-01-22] MEDS: DOCUSATE SODIUM 100 MG CAPSULE PO SCH (21:35)
[2022-01-23] VITALS: BP 129/61
[2022-01-23 04:00] VITALS: BP 137/63
--- NOTE | 2022-01-23 06:22 | NUR ---
RN NOTE PT REMAINS STABLE THROUGHOUT THE NIGHT. DENIES ANY PAIN OR SOB. VS STABLE. WILL ENDORSE TO AM SHIFT NURSE FOR RINA.
--- NOTE | 2022-01-23 07:10 | NUR ---
RN NOTE RECEIVED PATIENT IN BED RESTING ALERT ORIENTED X1-2 VERBALLY RESPONSIVE ON ROOM AIR O2:95% IV SITE IS ON LEFT UPPER ARM MIDLINE INTACT PATENT ON IV HYDRATION D5NS 75CC/HR.INCONTINENT BOWEL/BLADDER,SAFETY MEASURE IMPLEMENT BED IN LOW POSITION AND LOCKED,CALL LIGHT WITHIN REACH,BED ALARM IS ON CONTINUE TO MONITOR
[2022-01-23] MEDS: PANTOPRAZOLE 40 MG TABLET.DR PO SCH (07:40)
[2022-01-23 08:00] VITALS: BP 147/58
[2022-01-23] MEDS: ASPIRIN 81 MG TAB.CHEW PO SCH (08:43)
[2022-01-23] MEDS: risperiDONE 1 MG TABLET PO SCH ×2 (08:43→16:10)
[2022-01-23] MEDS: DULOXETINE HCL 20 MG CAPSULE.DR PO SCH ×2 (08:43→16:10)
[2022-01-23] MEDS: LOSARTAN POTASSIUM 50 MG TABLET PO SCH (08:44)
[2022-01-23 12:00] VITALS: BP 132/60
[2022-01-23] MEDS ORDERED: CEFT1VIA15 IV (12:46)
--- NOTE | 2022-01-23 14:00 | NUR ---
RN NOTE PATIENT WILL DISCHARGE TO [facility],CALLED FACILITY REPORT GIVEN TO MITALI ROSE CONTINUE TO MONITOR.
[2022-01-23] MEDS: IV D5/ 0.9% NACL 1,000 ML IV PRN (15:52)
[2022-01-23 16:00] VITALS: BP 144/68
[2022-01-23 16:43] VITALS: BP 157/78
[2022-01-23] MEDS ORDERED: CLONIDINE HCL 0.1 MG TABLET PO ONE (17:00)
--- NOTE | 2022-01-23 17:00 | NUR ---
RN NOTE PATIENT DISCHARGE TO [facility] IN STABLE CONDITION BP 142/76 HR 80 O2:98% ON ROOM AIR RR 18 PATIENT LEFT HOSPITAL WITH ALL BELONGINGS AND ACCOMPANIED BY 3 PROJECT PRODUCTION ENGINEER [facility].
== END 2022-01-23 17:09 | DRG 137 ==
LOC: ER 15:41 → TELE1 21:15
PROVIDERS: ADMIT Legal Medicine; ATTEND Legal Medicine
PROC: 05HC33Z Insertion of Infusion Device into Left Basilic Vein, Percutaneous Approach (ICD-10-PCS; principal; 2022-01-17)
DX: J69.0 Pneumonitis due to inhalation of food and vomit (principal); G93.41 Metabolic encephalopathy; N17.9 Acute kidney failure, unspecified; R62.7 Adult failure to thrive; F03.90 Unspecified dementia, unspecified severity, without behavioral disturbance, psychotic disturbance, mood disturbance, and anxiety; E86.0 Dehydration; Z68.22 Body mass index [BMI] 22.0-22.9, adult; Z20.822 Contact with and (suspected) exposure to COVID-19; I10 Essential (primary) hypertension; K21.9 Gastro-esophageal reflux disease without esophagitis; Z79.82 Long term (current) use of aspirin; Z79.899 Other long term (current) drug therapy; K80.20 Calculus of gallbladder without cholecystitis without obstruction; R13.10 Dysphagia, unspecified; Z95.0 Presence of cardiac pacemaker; F09 Unspecified mental disorder due to known physiological condition; N40.0 Benign prostatic hyperplasia without lower urinary tract symptoms; E78.5 Hyperlipidemia, unspecified
CPT/HCPCS: 36415; 71045-TC; 76705-TC; 80048-TC; 80053-TC; 80076-TC; 81001; 82248-TC; 83605-TC; 83735-TC; 83880; 84100-TC; 84484-TC; 85025-TC; 85378-TC; 86140-TC; 87040-TC; 87081-TC; 92526; 92611-TC; 97116-TC; 97530-TC; A4349; C9803; G0378; J0360; J0696; J1170; J1650; J1940; J2270; J3490; J7030; J7042; J7060; J7120; U0003

== ENCOUNTER 2023-11-02 19:15 | Inpatient (IN) | payer MEDICAID, MEDICARE ==
[~2023-11-02] VITALS: Ht 180.3 cm; Wt 63.5 kg
[~2023-11-02 19:15] MED LIST changes: +ACET-2605 PO; +ACET-868 PO; +ASPI-1169 PO; -ASPI-1420 PO; +BISA10SU11 RC; +LOSA100T31 PO; +NA P133E RC; +RISP0.2515 PO; -RISP1TAB97 PO; -VALS160T29 PO
[2023-11-02 21:19] LABS: BASOPHILS % (AUTO) 0.7 % (0.0-2.0); EOSINOPHILS # (AUTO) 0.1 K/uL (0.0-0.7); EOSINOPHILS % (AUTO) 1.4 % (0.0-6.0); HEMATOCRIT 35 % (39-51); HEMOGLOBIN 11.5 g/dL (13.5-17.5); LYMPHOCYTES # (AUTO) 0.8 K/uL (0.8-4.8); LYMPHOCYTES % (AUTO) 13.2 % (20.0-44.0); MEAN CORPUSCULAR HEMOGLOBIN 30 PG (26.0-33.0); MEAN CORPUSCULAR HGB CONC 33 g/dl (31.0-36.0); MEAN CORPUSCULAR VOLUME 91 fL (80-96); MONOCYTES # (AUTO) 1.5 K/uL (0.1-1.30); MONOCYTES % (AUTO) 23.6 % (2.0-12.0); NEUTROPHILS # (AUTO) 3.9 K/uL (1.8-8.9); NEUTROPHILS % (AUTO) 61.1 % (43.0-81.0); PLATELET COUNT (AUTO) 258 K/uL (150-450); RED BLOOD CELL COUNT(AUTO) 3.85 MIL/uL (4.5-6.0); RED CELL DISTRIBUTION WIDTH 15.8 % (11.5-15.0); WHITE BLOOD COUNT (AUTO) 6.3 K/uL (4.3-11.0)
[2023-11-02 21:28] LABS: CALCIUM, SERUM 8.8 mg/dL (8.5-10.1); CARBON DIOXIDE 23 mmol/L (21-32); CHLORIDE 107 mmol/L (98-107); GLUCOSE 136 mg/dL (74-106); POTASSIUM 3.8 mmol/L (3.5-5.1); SODIUM SERUM 138 mmol/L (136-145); UREA NITROGEN, BLOOD 44 mg/dL (7-18)
[2023-11-02 21:33] LABS: INR 1.01 (0.91-1.10); PROTHROMBIN TIME 10.4 SECS (9.2-11.1)
[2023-11-02 21:45] LABS: LACTIC ACID 1.1 mmol/L (0.4-2.0)
[2023-11-02 21:53] LABS: ALANINE AMINOTRANSFERASE 45 U/L (12-78); ALBUMIN 1.9 g/dL (3.4-5.0); ALCOHOL, BLOOD 5 mg/dL (0-10); ALKALINE PHOSPHATASE 100 U/L (46-116); ASPARTATE AMINOTRANSFERASE 45 U/L (15-37); BILIRUBIN,DIRECT 0.2 mg/dL (0.0-0.2); BILIRUBIN,TOTAL 0.6 mg/dL (0.2-1.0); TOTAL PROTEIN, SERUM 6.7 g/dL (6.4-8.2)
[2023-11-02 21:54] LABS: ACETAMINOPHEN <10 ug/ml (10-30); SALICYLATE 0.7 mg/dL (2.8-20.0)
[2023-11-02 21:58] LABS: SERUM AMMONIA 19 umol/L (11-32)
[2023-11-02 22:10] LABS: THYROID STIMULATING HORMONE 1.483 uIU/mL (0.358-3.74)
[2023-11-02] MEDS ORDERED: PIPERACI/TAZO 3.375GM/D5W 50ML PB IV ONE (23:36)
[2023-11-02] MEDS ORDERED: VANCOMYCIN 1 GM /D5W 250 ML PB IV ONE (23:36)
[2023-11-02] MEDS: PIPERACILLIN /TAZOBACTAM 3.375 G in IV D5W 50 ML IV ONE (23:40)
[2023-11-03] MEDS ORDERED: ONDANSETRON HCL/PF 4 MG/2 ML VIAL IVP PRN
[2023-11-03] MEDS ORDERED: ACETAMINOPHEN 325 MG TABLET PO PRN
[2023-11-03] MEDS: VANCOMYCIN 1 GM in IV D5W 250 ML IV ONE (00:10)
[2023-11-03 00:11] LABS: BAND % (MANUAL) 4 % (0.0-5.0); EOSINOPHILS % (MANUAL) 2 % (0-4); LYMPHOCYTES % (MANUAL) 18 % (16-48); MONOCYTES % (MANUAL) 14 % (0-11.0)
[2023-11-03 00:13] LABS: NEUTROPHILS % (MANUAL) 62 (42-76); PLATELET ESTIMATE ADEQUATE
[2023-11-03] MEDS: IV NS 0.9% 1,000 ML IV PRN (02:02)
[2023-11-03 02:38] VITALS: BP 123/68; TEMP 97.5; O2SAT 95
[2023-11-03 06:51] LABS: BASOPHILS % (AUTO) 0.5 % (0.0-2.0); EOSINOPHILS # (AUTO) 0.2 K/uL (0.0-0.7); HEMATOCRIT 32 % (39-51); HEMOGLOBIN 10.8 g/dL (13.5-17.5); LYMPHOCYTES # (AUTO) 0.7 K/uL (0.8-4.8); LYMPHOCYTES % (AUTO) 11.2 % (20.0-44.0); MEAN CORPUSCULAR HEMOGLOBIN 31 PG (26.0-33.0); MEAN CORPUSCULAR HGB CONC 34 g/dl (31.0-36.0); MEAN CORPUSCULAR VOLUME 92 fL (80-96); MONOCYTES # (AUTO) 1.4 K/uL (0.1-1.30); MONOCYTES % (AUTO) 22.3 % (2.0-12.0); NEUTROPHILS # (AUTO) 4.1 K/uL (1.8-8.9); PLATELET COUNT (AUTO) 233 K/uL (150-450); RED BLOOD CELL COUNT(AUTO) 3.52 MIL/uL (4.5-6.0); RED CELL DISTRIBUTION WIDTH 16.2 % (11.5-15.0); WHITE BLOOD COUNT (AUTO) 6.5 K/uL (4.3-11.0)
[2023-11-03 07:02] LABS: CALCIUM, SERUM 8.2 mg/dL (8.5-10.1); CARBON DIOXIDE 23 mmol/L (21-32); CHLORIDE 107 mmol/L (98-107); GLUCOSE 125 mg/dL (74-106); MAGNESIUM 2.1 mg/dL (1.8-2.4); PHOSPHORUS 3.5 mg/dL (2.5-4.9); POTASSIUM 3.6 mmol/L (3.5-5.1); SODIUM SERUM 139 mmol/L (136-145); UREA NITROGEN, BLOOD 40 mg/dL (7-18)
[2023-11-03 07:07] LABS: AMPHETAMINE, URINE NEGATIVE (NEGATIVE); BARBITURATE, URINE NEGATIVE (NEGATIVE); BENZODIAZEPINE, URINE NEGATIVE (NEGATIVE); CANNABINOID, URINE NEGATIVE (NEGATIVE); COCCAINE, URINE NEGATIVE (NEGATIVE); OPIATE, URINE NEGATIVE (NEGATIVE); PHENCYCLIDINE SCREEN,URINE NEGATIVE (NEGATIVE)
[2023-11-03 07:09] LABS: APPEARANCE,URINE TURBID (CLEAR); BILIRUBIN,URINE NEGATIVE (NEGATIVE); BLOOD, URINE 3+ Ery/uL (NEGATIVE); COLOR,URINE YELLOW (YELLOW); KETONES,URINE NEGATIVE (NEGATIVE); LEUKOCYTE ESTERASE ,URINE 3+ (NEGATIVE); NITRITE, URINE POSITIVE (NEGATIVE); PROTEIN,URINE 2+ mg/dl (NEGATIVE); UGLUCOSE NEGATIVE (NEGATIVE); UROBILINOGEN,URINE 0.2 EU/dL (0.2)
[2023-11-03 07:10] LABS: ADD URINE CULTURE YES; BACTERIA,URINE Many /HPF (None Seen); SQUAMOUS EPITHELIAL CELL,UR Rare /HPF (None Seen); WBC,URINE TOO NUMEROUS TO COUN /HPF (0-3)
[2023-11-03 08:00] VITALS: BP 118/77; TEMP 97.9; O2SAT 96
[2023-11-03] MEDS: HEPARIN SODIUM, PORCINE 5000 UNITS/1 ML VIAL SQ SCH (08:35)
[2023-11-03] MEDS ORDERED: FERR325T23 PO (09:30)
[2023-11-03] MEDS ORDERED: PROM118S5 PO (09:30)
[2023-11-03] MEDS ORDERED: FINA5TAB11 PO (09:30)
[2023-11-03] MEDS ORDERED: SALI325S2 TP (09:30)
[2023-11-03] MEDS ORDERED: SENN1TAB6 PO (09:30)
[2023-11-03] MEDS ORDERED: SPIR25TA PO (09:30)
[2023-11-03] MEDS ORDERED: CLON0.1T PO (09:30)
[2023-11-03] MEDS ORDERED: HYDR25TA4 PO (09:30)
[2023-11-03] MEDS ORDERED: SACU1TAB PO (09:30)
[2023-11-03] MEDS ORDERED: CARV3.122 PO (09:30)
[2023-11-03] MEDS ORDERED: FURO40TA5 PO (09:30)
[2023-11-03] MEDS ORDERED: HYDR-500 PO (09:30)
[2023-11-03] MEDS ORDERED: PANT40TA49 PO (09:30)
[2023-11-03] MEDS ORDERED: RISP0.5T65 PO (09:30)
[2023-11-03] MEDS ORDERED: NITR0.4T48 SL (09:30)
[2023-11-03] MEDS ORDERED: MAGN400O6 PO (09:30)
[2023-11-03] MEDS: PIPERACILLIN /TAZOBACTAM 3.375 G in IV D5W 50 ML IV SCH (11:10)
[2023-11-03 11:32] LABS: ANISOCYTOSIS 1+; BASOPHILS % (MANUAL) 0 % (0.0-2.0); EOSINOPHILS % (MANUAL) 2 % (0-4); LYMPHOCYTES % (MANUAL) 13 % (16-48); MONOCYTES % (MANUAL) 20 % (0-11.0); NEUTROPHILS % (MANUAL) 65 (42-76); OVALOCYTES 1+; PLATELET ESTIMATE ADEQUATE
[2023-11-03 12:00] VITALS: BP 141/60; TEMP 98; O2SAT 98
[2023-11-03 16:00] VITALS: BP 115/62; TEMP 98; O2SAT 96
[2023-11-03 20:00] VITALS: BP 112/56; TEMP 98; O2SAT 96
[2023-11-03] MEDS: VANCOMYCIN 750 MG in IV D5W 250 ML IV SCH (23:16)
[2023-11-04] VITALS: BP 112/56; TEMP 98; O2SAT 96
[2023-11-04 04:02] VITALS: BP 117/69; TEMP 98.1; O2SAT 97
[2023-11-04 06:26] LABS: BASOPHILS # (AUTO) 0.1 K/uL (0.0-0.2); BASOPHILS % (AUTO) 1.2 % (0.0-2.0); EOSINOPHILS # (AUTO) 0.3 K/uL (0.0-0.7); EOSINOPHILS % (AUTO) 4.1 % (0.0-6.0); HEMATOCRIT 31 % (39-51); HEMOGLOBIN 10.2 g/dL (13.5-17.5); LYMPHOCYTES % (AUTO) 13.1 % (20.0-44.0); MEAN CORPUSCULAR HEMOGLOBIN 30 PG (26.0-33.0); MEAN CORPUSCULAR HGB CONC 33 g/dl (31.0-36.0); MEAN CORPUSCULAR VOLUME 92 fL (80-96); MONOCYTES # (AUTO) 1.1 K/uL (0.1-1.30); MONOCYTES % (AUTO) 14.5 % (2.0-12.0); NEUTROPHILS # (AUTO) 5.3 K/uL (1.8-8.9); NEUTROPHILS % (AUTO) 67.1 % (43.0-81.0); PLATELET COUNT (AUTO) 259 K/uL (150-450); RED BLOOD CELL COUNT(AUTO) 3.36 MIL/uL (4.5-6.0); RED CELL DISTRIBUTION WIDTH 16.2 % (11.5-15.0); WHITE BLOOD COUNT (AUTO) 7.8 K/uL (4.3-11.0)
[2023-11-04 06:43] LABS: ALANINE AMINOTRANSFERASE 62 U/L (12-78); ALBUMIN 1.5 g/dL (3.4-5.0); ALKALINE PHOSPHATASE 100 U/L (46-116); ASPARTATE AMINOTRANSFERASE 74 U/L (15-37); BILIRUBIN,TOTAL 0.8 mg/dL (0.2-1.0); CALCIUM, SERUM 8.8 mg/dL (8.5-10.1); CARBON DIOXIDE 20 mmol/L (21-32); CHLORIDE 109 mmol/L (98-107); CREATININE 1.8 mg/dL (0.6-1.3); GLUCOSE 103 mg/dL (74-106); MAGNESIUM 2.1 mg/dL (1.8-2.4); PHOSPHORUS 3.1 mg/dL (2.5-4.9); SODIUM SERUM 141 mmol/L (136-145); UREA NITROGEN, BLOOD 34 mg/dL (7-18)
[2023-11-04 07:25] LABS: CREATINE KINASE, TOTAL 14 U/L (39-308)
[2023-11-04 08:00] VITALS: BP 121/71; TEMP 98; O2SAT 98
[2023-11-04 12:00] VITALS: BP 100/56; TEMP 98.1; O2SAT 98
[2023-11-04 16:00] VITALS: BP 116/69; TEMP 97.7; O2SAT 99
[2023-11-04 20:00] VITALS: BP 100/52; TEMP 98.1; O2SAT 99
[2023-11-05] VITALS (7 sets, daily range): BP systolic 105–155; BP diastolic 58–88; TEMP 97.9–99.2; O2SAT 97–99
[2023-11-05] MEDS: ENSURE ENLIVE CHOC 237 ML CAN PO SCH (17:21)
[2023-11-06 00:41] VITALS: BP 159/79; TEMP 97.3; O2SAT 98
[2023-11-06 07:07] LABS: PTH, INTACT 9 pg/mL (15-65)
[2023-11-06 07:35] LABS: BASOPHILS # (AUTO) 0.1 K/uL (0.0-0.2); EOSINOPHILS # (AUTO) 0.4 K/uL (0.0-0.7); EOSINOPHILS % (AUTO) 5.4 % (0.0-6.0); HEMATOCRIT 30 % (39-51); HEMOGLOBIN 9.8 g/dL (13.5-17.5); LYMPHOCYTES # (AUTO) 1.1 K/uL (0.8-4.8); LYMPHOCYTES % (AUTO) 15.9 % (20.0-44.0); MEAN CORPUSCULAR HEMOGLOBIN 31 PG (26.0-33.0); MEAN CORPUSCULAR HGB CONC 33 g/dl (31.0-36.0); MEAN CORPUSCULAR VOLUME 94 fL (80-96); MONOCYTES # (AUTO) 0.7 K/uL (0.1-1.30); MONOCYTES % (AUTO) 9.2 % (2.0-12.0); NEUTROPHILS # (AUTO) 4.9 K/uL (1.8-8.9); NEUTROPHILS % (AUTO) 68.5 % (43.0-81.0); PLATELET COUNT (AUTO) 347 K/uL (150-450); RED BLOOD CELL COUNT(AUTO) 3.16 MIL/uL (4.5-6.0); RED CELL DISTRIBUTION WIDTH 16.3 % (11.5-15.0); WHITE BLOOD COUNT (AUTO) 7.2 K/uL (4.3-11.0)
[2023-11-06 08:44] LABS: ALANINE AMINOTRANSFERASE 31 U/L (12-78); ALKALINE PHOSPHATASE 79 U/L (46-116); ASPARTATE AMINOTRANSFERASE 20 U/L (15-37); BILIRUBIN,TOTAL 0.7 mg/dL (0.2-1.0); CALCIUM, SERUM 8.2 mg/dL (8.5-10.1); CARBON DIOXIDE 18 mmol/L (21-32); CHLORIDE 113 mmol/L (98-107); CREATININE 1.6 mg/dL (0.6-1.3); GLUCOSE 87 mg/dL (74-106); MAGNESIUM 1.7 mg/dL (1.8-2.4); PHOSPHORUS 4.3 mg/dL (2.5-4.9); POTASSIUM 3.2 mmol/L (3.5-5.1); SODIUM SERUM 143 mmol/L (136-145); TOTAL PROTEIN, SERUM 5.4 g/dL (6.4-8.2); UREA NITROGEN, BLOOD 16 mg/dL (7-18)
[2023-11-06 09:09] LABS: ALBUMIN 1.3 g/dL (3.4-5.0)
[2023-11-06 09:11] LABS: *SPE A/G RATIO 0.5 (0.7-1.7); *SPE ALBUMIN 1.8 g/dL (2.9-4.4); *SPE ALPHA-1-GLOBULIN 0.4 g/dL (0.0-0.4); *SPE ALPHA-2-GLOBULIN 1.4 g/dL (0.4-1.0); *SPE BETA GLOBULIN 0.7 g/dL (0.7-1.3); *SPE GLOBULIN, TOTAL 3.3 g/dL (2.2-3.9); *SPE M-SPIKE 0.4 g/dL (Not Observed); *SPE PROTEIN TOTAL 5.1 g/dL (6.0-8.5); *SPEGAMMA GLOBULIN 0.8 g/dL (0.4-1.8)
== END 2023-11-06 15:10 | disposition home health service (06) | DRG 137 ==
LOC: ER 19:17 → TELE1 11-03 00:39 → TELE 11-05 00:31
PROVIDERS: ADMIT Nurse Practitioner Acute Care
DX: J15.69 Pneumonia due to other Gram-negative bacteria (principal); N17.0 Acute kidney failure with tubular necrosis; G93.41 Metabolic encephalopathy; E43 Unspecified severe protein-calorie malnutrition; E78.5 Hyperlipidemia, unspecified; D64.9 Anemia, unspecified; E88.09 Other disorders of plasma-protein metabolism, not elsewhere classified; F32.A Depression, unspecified; K21.9 Gastro-esophageal reflux disease without esophagitis; M13.0 Polyarthritis, unspecified; N40.0 Benign prostatic hyperplasia without lower urinary tract symptoms; R62.7 Adult failure to thrive; Z79.82 Long term (current) use of aspirin; M19.90 Unspecified osteoarthritis, unspecified site; M94.0 Chondrocostal junction syndrome [Tietze]; N39.0 Urinary tract infection, site not specified; N18.9 Chronic kidney disease, unspecified; I12.9 Hypertensive chronic kidney disease with stage 1 through stage 4 chronic kidney disease, or unspecified chronic kidney disease; Z68.1 Body mass index [BMI] 19.9 or less, adult
CPT/HCPCS: 36415; 70450-TC; 71045-TC; 76770-TC; 80048-TC; 80053-TC; 80076-TC; 80202-TC; 81001; 82140-TC; 82550-TC; 82962-TC; 83605-TC; 83735-TC; 83970; 84100-TC; 84155; 84165; 84443-TC; 84484-TC; 85025-TC; 85730-TC; 87040-TC; 87081-TC; 87086-TC; A4223; G0378; G0480; J1644; J2543; J3370; J3371; J7030; J7060